=== PATIENT | male | born 1935 | race Caucasian/White ===

== ENCOUNTER 2023-03-04 12:11 | Observation (INO) | payer OTHER ==
--- OUTSIDE RECORDS SUMMARY | 2023-03-04 12:33 | XMS REPORT | Continuity of Care Document ---
:1935 Author Organization [facility] t Address [address] [place] [address] [place] [id number] Care Team Providers Name Role Phone TALIA SCHULZ Primary Care Physician Unavailable KLAUS BERGER Attending Clinician Unavailable Klaus Berger MD Attending Clinician KLAUS BERGER Admitting Clinician Unavailable Payers Payer Name Policy Type Policy Number Effective Date Expiration Date [facility] [id number] 2021 [facility] 00:00:00 PPO Problems This patient has no known problems. Allergies, Adverse Reactions, Alerts Allergy Allergy Status Severity Reaction(s) Onset Inactive Treating Comm ents Source Name Type Date Date Clinician NO KNOWN Drug Active [facility] ALLERGIE Class [facility] Social History Social Habit Start Date Stop Date Quantity Comments Source Sex Assigned At [birth year] [facility] 00:00:00 00:00:00 Medical Branch Smoking Status Start Date Stop Date Source Tobacco smoking consumption [facility] Branch Medications This patient has no known medications. Procedures Procedure Date / Time Performing Clinician Source Performed US [facility] 2022-03-05 14:13:00 Klaus Berger [facility] Medical Branch Encounters Start End Encounter Admission Attending Care Care Encounter Source Date/Time Date/Time Type Type Clinicians Facility Department ID 2022-03-05 2022-03-05 Outpatient R DANIEL [facility] [id number] Univers 08:30:02 23:59:00 KLAUS [facility] 2022-03-05 2022-03-05 [facility] [id number] [facility] 08:30:02 23:59:00 Encounter Klaus REYNAGA [id number] [facility]ipo [id number] [facility] [id number] [facility] 806 Branch Results This patient has no known results.
[2023-03-04 13:28] LABS: Absolute Lymphocytes (CBC) 1.2 K/uL (0.7-4.9); Hematocrit 26.6 % (39.6-49.0); Lymphocytes % 22.1 % (15.3-44.8); MCV 81.1 fL (80-100); MPV 8.2 fL (7.6-11.3); RBC Red Blood Cell Count 3.29 M/uL (4.33-5.43)
[2023-03-04 13:32] LABS: Protime INR 1.16
[2023-03-04] MEDS ORDERED: LOPERAMIDE HCL 2 MG CAPSULE PO PRN (14:00)
[2023-03-04] MEDS ORDERED: ONDANSETRON 4 MG/2 ML VIAL IV PRN (14:00)
[2023-03-04] MEDS ORDERED: ONDANSETRON 4 MG (ODT) TAB PO PRN (14:00)
[2023-03-04] MEDS ORDERED: ACETAMINOPHEN 325 MG TABLET PO PRN (14:00)
[2023-03-04] MEDS ORDERED: POLYETHYL GLY 3350 17 GM/DOSE PO PRN (14:00)
[2023-03-04] MEDS ORDERED: NACHLORIDE 0.45% 1,000 ML IV SCH (14:00)
[2023-03-04] MEDS ORDERED: DIPHENHYDRAMINE 25 MG TAB/CAP PO PRN (14:00)
--- NOTE | 2023-03-04 14:49 | RAD REPORT ---
EXAM DESCRIPTION: CTAbdomen Pelvis W Contrast - 03/04/2023 2:07 pm CLINICAL HISTORY: anemia COMPARISON: Abdomen Pelvis W Contrast dated 12/16/2017 TECHNIQUE: CT of the abdomen and pelvis was performed with IV contrast. All CT scans are performed using dose optimization technique as appropriate and may include automated exposure control or mA/KV adjustment according to patient size. FINDINGS: Lower chest: Small right greater than left pleural effusions. Atelectasis. Coronary artery calcifications and cardiomegaly . Sternotomy. Liver: No acute abnormality or suspicious lesions. Biliary: Cholelithiasis. Stomach: No significant focal abnormality. Duodenum: No significant focal abnormality. Pancreas: No significant abnormality. Spleen: No significant abnormality. Adrenal: No suspicious lesions. Kidney/ureter: No hydronephrosis. No renal calculi. Right renal scarring. Too small to characterize a nd/or benign appearing renal lesions are noted. Retroperitoneum: No retroperitoneal adenopathy. Vascular: Atherosclerosis which is severe. Bowel: No significant focal abnormality. Diverticulosis without diverticulitis. Peritoneum: No ascites or free air. Bladder: Circumferential bladder wall thickening. Reproductive: Mild prostatomegaly. Bones: No acute fracture. Other: Body wall edema. Rounded fluid collections in the subcutaneous tissues of the flank just to th e right of midline. One collection measures 5.7 cm. The other measures 4.4 cm. These were present in 2018 . IMPRESSION: 1. Anasarca including bilateral pleural effusions and a small volume of pleural free flu id. 2. Other incidental findings as noted above without specific findings to explain anemia.
[2023-03-04] MEDS ORDERED: NA CHLORIDE 0.9% 250 ML ONE (16:44)
[2023-03-04] MEDS ORDERED: TAMSULOSIN 0.4 MG SR CAP PO SCH (21:00)
[2023-03-04] MEDS ORDERED: FINASTERIDE 5 MG TAB PO SCH (21:00)
[2023-03-04] MEDS ORDERED: METOPROLOL TAR 50 MG TAB PO SCH (21:00)
[2023-03-04 21:15] LABS: Hematocrit 25.9 % (39.6-49.0)
[2023-03-04 23:06] VITALS: O2SAT 100
[2023-03-05] MEDS ORDERED: NA CHLORIDE 0.9% 250 ML ONE (03:30)
[2023-03-05 04:30] VITALS: TEMP 97.2
[2023-03-05 05:28] LABS: Albumin 2.5 g/dL (3.4-5.0); Bilirubin Direct 0.3 mg/dL (0-0.2); Bilirubin Indirect, Calculated 0.5 mg/dL (0.2-0.8); Bilirubin Total 0.8 mg/dL (0.2-1.0)
[2023-03-05 05:45] VITALS: BMI 25.7
[2023-03-05] MEDS ORDERED: LEVOTHYROXINE SOD 0.025 MG TAB PO SCH (06:30)
[2023-03-05 08:49] LABS: Hematocrit 29.6 % (39.6-49.0)
[2023-03-05] MEDS ORDERED: HOME MED 1 EA UNK (Fluticasone/Umeclidin/Vilanter [Trelegy Ellipta 100-62.5-25] Blst.W.Dev IH SCH (09:00)
[2023-03-05] MEDS ORDERED: ATORVASTATIN 40 MG TAB PO SCH (09:00)
[2023-03-05] MEDS ORDERED: HOME MED 1 EA UNK (Levothyroxine Sodium [Levothyroxine Sodium] 25 MCG Capsule) PO SCH (09:00)
[2023-03-05 11:01] VITALS: BP 146/89
--- NOTE | 2023-03-05 21:40 | P.DS ---
Admission Date: 03/04/23 Discharge Date: 03/05/23 Disposition: ROUTINE DISCHARGE Hospital Course: RICARDA HAD HG OF 7.6 DROPPED FROM 8.9 WITH [facility]. HE IS A CARDIAC PATIENT AND WAS FATIGUED WITH DYSPNEA. I DECIDED TO ADMIT FOR TRANSFUSION. AFTER ONE UNIT HG AT [facility] DROPPED FROM 8.1 TO 7.9. HE IS NOT ACUTELY BLEEDING. HE WAS GIVEN ONE MORE UNIT OF PACKED RBC AND DISCHARGED. I TALKED TO DR. BOOKER AND HE WILL DO FURTHER EVAL FOR THIS IRON DEF ANEMIA. PATIENT KNOWS TO CALL HIM. Vital Signs/Physical Exam: Temp Pulse Resp BP Pulse Ox 97.2 F 91 H 23 H 146/89 H 100 03/05/23 08:00 03/05/23 10:50 03/05/23 10:50 03/05/23 10:50 03/05/23 04:00 Laboratory Data at Discharge: WBC 5.30 thou/uL (4.3-10.9) 03/04/23 13:10 Hgb 9.2 g/dL (13.6-17.9) L D 03/05/23 08:17 Hct 29.6 % (39.6-49.0) L 03/05/23 08:17 Plt Count 155 thou/uL (152-406) 03/04/23 13:10 PT 12.8 SECONDS (9.5-12.5) H 03/04/23 13:10 INR 1.16 03/04/23 13:10 APTT 31.3 SECONDS (24.3-36.9) 03/04/23 13:10 Sodium 139 mEq/L (136-145) 03/04/23 13:10 Potassium 4.0 mEq/L (3.5-5.1) 03/04/23 13:10 BUN 26 mg/dL (7-18) H 03/04/23 13:10 Creatinine 1.61 mg/dL (0.70-1.30) H 03/04/23 13:10 Glucose 97 mg/dL (74-106) 03/04/23 13:10 Total Bilirubin 0.8 mg/dL (0.2-1.0) 03/05/23 04:25 AST 12 U/L (15-37) L 03/05/23 04:25 ALT 17 U/L (16-61) 03/05/23 04:25 Alkaline Phosphatase 74 U/L (45-117) 03/05/23 04:25 Home Medications: Atorvastatin Calcium 40 mg PO DAILY 03/04/23 Finasteride 5 mg PO BEDTIME 03/04/23 Fluticasone/Umeclidin/Vilanter [Trelegy Ellipta 100-62.5-25] 1 puff IH DAILY 03/04/23 Levothyroxine Sodium [Levothyroxine] 25 mcg PO DAILY 03/04/23 Metoprolol Tartrate [Lopressor] 50 mg PO BEDTIME 03/04/23 Tamsulosin [Flomax] 0.4 mg PO BEDTIME 03/04/23 Followup: David Austin MD [Family Provider] - Nishant Booker MD [ASSOCIATE-ACTIVE - CAN ADMIT] -
== END 2023-03-05 10:45 | disposition home or self-care (01) ==
LOC: 3RD-ICU 12:28
PROVIDERS: ADMIT Internal Medicine; ATTEND Internal Medicine
DX: D64.9 Anemia, unspecified (principal); D50.9 Iron deficiency anemia, unspecified; I25.10 Atherosclerotic heart disease of native coronary artery without angina pectoris
CPT/HCPCS: 36430 ×2; 85025; 80048; 36415; 86900; 86850; 85610; 86901; 80076; 85730; 86920 ×2; 85018 ×2; 85014 ×2; 74177; Q9967; P9016 ×2; J7050 ×2

== ENCOUNTER 2023-03-13 06:36 | Day surgery (SDC) | payer OTHER ==
[2023-03-13] MEDS ORDERED: Ringers Lactate 1,000 ML IV ONE (07:32)
[2023-03-13] MEDS ORDERED: propofoL 200 MG/20 ML VIAL IV ONE (09:13)
[2023-03-13] MEDS ORDERED: LIDOCAINE 1% MPF 5 ML VIAL ONE (09:13)
[2023-03-13] MEDS ORDERED: GLUCAGON 1 MG/VIAL ONE (10:27)
[2023-03-13 12:21] VITALS: BP 125/72; TEMP 97; O2SAT 97
== END 2023-03-13 11:10 | disposition home or self-care (01) ==
LOC: OR 06:36
PROVIDERS: ATTEND Internal Medicine Gastroenterology
PROC: 0DBM8ZX Excision of Descending Colon, Via Natural or Artificial Opening Endoscopic, Diagnostic (ICD-10-PCS; 2023-03-13)
PROC: 0DBC8ZX Excision of Ileocecal Valve, Via Natural or Artificial Opening Endoscopic, Diagnostic (ICD-10-PCS; 2023-03-13)
PROC: 0DB98ZX Excision of Duodenum, Via Natural or Artificial Opening Endoscopic, Diagnostic (ICD-10-PCS; principal; 2023-03-13 10:15)
PROC: 0DB68ZX Excision of Stomach, Via Natural or Artificial Opening Endoscopic, Diagnostic (ICD-10-PCS; 2023-03-13 10:15)
DX: D50.9 Iron deficiency anemia, unspecified (principal); R19.7 Diarrhea, unspecified; K26.7 Chronic duodenal ulcer without hemorrhage or perforation; Z86.010 Personal history of colon polyps; K57.30 Diverticulosis of large intestine without perforation or abscess without bleeding; K64.8 Other hemorrhoids; K29.80 Duodenitis without bleeding; K29.50 Unspecified chronic gastritis without bleeding; D12.0 Benign neoplasm of cecum; K26.3 Acute duodenal ulcer without hemorrhage or perforation
CPT/HCPCS: 88312; 88305; 43239; 45385; J1610; J2704; J2001; J7120

== ENCOUNTER 2023-05-15 14:58 | Inpatient (IN) | payer OTHER ==
--- OUTSIDE RECORDS SUMMARY | 2023-05-15 15:38 | XMS REPORT | Continuity of Care Document ---
:1935 Author Organization [facility] t Address [address] [place] [address] [place] [address] Care Team Providers Name Role Phone TALIA SCHULZ Primary Care Physician Unavailable KLAUS BERGER Attending Clinician Unavailable Klaus Berger MD Attending Clinician KLAUS BERGER Admitting Clinician Unavailable Payers Payer Name Policy Type Policy Number Effective Date Expiration Date [facility] [id number] 2021 [facility] 00:00:00 PPO Problems This patient has no known problems. Allergies, Adverse Reactions, Alerts Allergy Allergy Status Severity Reaction(s) Onset Inactive Treating Comm ents Source Name Type Date Date Clinician NO KNOWN Drug Active Univers ALLERGIE Class [facility] Social History Social Habit Start Date Stop Date Quantity Comments Source Sex Assigned At [birth year] [facility] 00:00:00 00:00:00 Medical Branch Smoking Status Start Date Stop Date Source Tobacco smoking consumption [facility] Branch Medications This patient has no known medications. Procedures Procedure Date / Time Performing Clinician Source Performed US [facility] 2022-03-05 14:13:00 Klaus Berger [facility] Medical Branch Encounters Start End Encounter Admission Attending Care Care Encounter Source Date/Time Date/Time Type Type Clinicians Facility Department ID 2022-03-05 2022-03-05 Outpatient R DANIEL [facility] [id number] Univers 08:30:02 23:59:00 KLAUS [facility] 2022-03-05 2022-03-05 [facility] [id number] [facility] 08:30:02 23:59:00 Encounter Klaus REYNAGA [id number] itPipo [id number] [facility] [id number] [facility] 806 Branch Results This patient has no known results.
[2023-05-15] MEDS ORDERED: LOPERAMIDE HCL 2 MG CAPSULE PO PRN (15:52)
[2023-05-15] MEDS ORDERED: POLYETHYL GLY 3350 17 GM/DOSE PO PRN (15:52)
[2023-05-15] MEDS ORDERED: ONDANSETRON 4 MG/2 ML VIAL IV PRN (15:52)
--- NOTE | 2023-05-15 16:37 | RAD REPORT ---
EXAM DESCRIPTION: CT - Abdomen Pelvis Wo Contrast - 05/15/2023 4:27 pm CLINICAL HISTORY: Abdominal pain. CHF, Anasarca, Anemia COMPARISON: Abdomen Pelvis W Contrast dated 03/04/2023 TECHNIQUE: CT imaging of the abdomen and pelvis was performed without contrast. Solid organ, bowel a nd vascular assessment is limited due to lack of IV and oral contrast. All CT scans are performed using dose optimization technique as appropriate and may include automated exposure control or mA/KV adjustment according to patient size. FINDINGS: Small left and small to moderate right pleural effusion with atelectasis in the right lung base. Cholelithiasis. Noncontrast assessment of the liver, spleen, pancreas and adrenal glands is normal. N o stone or hydronephrosis of either kidney. No solid renal mass. Prominent anasarca pattern remains present. No bowel obstruction or free air. Moderate sigmoid divert iculosis coli without diverticulitis The appendix is normal. Aortoiliac atherosclerosis is present. Moderate multilevel lumbar degenerative changes. IMPRESSION: Sigmoid diverticulosis coli seen without diverticulitis. Moderate generalized anasarca. A limited non-contrast examination was performed as detailed.
--- NOTE | 2023-05-15 16:47 | RAD REPORT ---
EXAM DESCRIPTION: RAD - Chest Pa And Lat (2 Views) - 05/15/2023 4:40 pm CLINICAL HISTORY: dyspnea, chf Chest pain. COMPARISON: <Comparisons> FINDINGS: Small left and moderate right pleural effusion is seen with probable atelectasis in the ri ght lung base. The lungs appear hyperinflated compatible with underlying emphysema. The heart is mode rately enlarged in size.
[2023-05-15] MEDS: FUROSEMIDE 40 MG/4 ML VIAL IV SCH (17:13)
[2023-05-15 17:43] LABS: Absolute Lymphocytes (CBC) 0.9 K/uL (0.7-4.9); Hematocrit 28.8 % (39.6-49.0); MPV 8.6 fL (7.6-11.3); Platelets 127 thou/uL (152-406); RBC Red Blood Cell Count 3.69 M/uL (4.33-5.43)
[2023-05-15 17:45] LABS: Protime INR 1.19
[2023-05-15] MEDS: ENOXAPARIN 30 MG/0.3 ML SQ SCH (18:35)
[2023-05-15 18:37] LABS: Albumin 2.7 g/dL (3.4-5.0); Bilirubin Direct 0.3 mg/dL (0-0.2); Bilirubin Indirect, Calculated 0.3 mg/dL (0.2-0.8); Bilirubin Total 0.6 mg/dL (0.2-1.0); Magnesium 1.8 mg/dL (1.6-2.4); Phosphorus 3.7 mg/dL (2.5-4.9); Potassium 3.7 mEq/L (3.5-5.1); Protein, Total 6.4 g/dL (6.4-8.2)
[2023-05-15 18:45] LABS: Thyroid Stimulating Hormone 5.1 uIU/mL (0.358-3.740)
[2023-05-16 06:33] LABS: Absolute Lymphocytes (CBC) 0.8 K/uL (0.7-4.9); Hematocrit 26.5 % (39.6-49.0); Lymphocytes % 16.3 % (15.3-44.8); MCV 77.1 fL (80-100); MPV 8.5 fL (7.6-11.3); Platelets 119 thou/uL (152-406); RBC Red Blood Cell Count 3.44 M/uL (4.33-5.43)
[2023-05-16 06:41] LABS: Potassium 3.6 mEq/L (3.5-5.1)
[2023-05-16] MEDS ORDERED: POTASSIUM CL SA 10 MEQ TAB PO ONE (07:26)
[2023-05-16] MEDS: ASPIRIN EC 81 MG TAB PO SCH (08:44)
[2023-05-16] MEDS: FUROSEMIDE 40 MG/4 ML VIAL IV SCH ×2 (08:44→17:12)
[2023-05-16] MEDS: LEVOTHYROXINE SOD 0.025 MG TAB PO SCH (08:44)
[2023-05-16] MEDS: SPIRONOLACTONE 100 MG TAB PO SCH (08:44)
[2023-05-16] MEDS ORDERED: HOME MED 1 EA UNK (Levothyroxine Sodium [Levothyroxine Sodium] 25 MCG Capsule) PO SCH (09:00)
[2023-05-16 11:10] LABS: Specific Gravity 1.009 (1.005-1.030); Urine Bacteria <20 /HPF (<20); Urine Bilirubin NEGATIVE (Negative); Urine Blood Negative (Negative); Urine Clarity Turbid (Clear); Urine Color Light-Yellow (Yellow); Urine Glucose NEGATIVE (Negative); Urine Mucus Slight /HPF (None Seen); Urine Protein 1+ (Negative); Urine RBC <5 /HPF (None Seen); Urine Urobilinogen Normal (Normal)
[2023-05-16 11:21] LABS: UR PROTEIN 77.1 mg/dL (<11.9); Urine Protein/Creatinine Ratio 2.27 ratio (<0.15)
--- NOTE | 2023-05-16 12:42 | ECHO ---
HEIGHT: 6 ft 1 in WEIGHT: 240 lb 0 oz DATE OF STUDY: 05/16/[address]: David Austin MD 2-DIMENSIONAL: YES M.MODE: YES DOPPLER: YES COLOR FLOW: YES TDS: YES PORTABLE: YES DEFINITY: BUBBLE STUDY: DIAGNOSIS: CONGESTIVE HEART FAILURE CARDIAC HISTORY: CATHERIZATION: YES SURGERY: YES PROSTHETIC VALVE: NO PACEMAKER: NO MEASUREMENTS (cm) DIASTOLIC (NORMALS) SYSTOLIC (NORMALS) IVSd 1.2 (0.6-1.2) LA Diam 3.2 (1.9-4.0) LVEF 59% LVIDd 5.0 (3.5-5.7) LVIDs 3.4 (2.0-3.5) %FS 31% LVPWd 1.3 (0.6-1.2) Ao Diam 3.2 (2.0-3.7) 2 DIMENSIONAL ASSESSMENT: RIGHT ATRIUM: NORMAL LEFT ATRIUM: NORMAL RIGHT VENTRICLE: NORMAL LEFT VENTRICLE: LEFT VENTRICULAR HYPERTROPHY TRICUSPID VALVE: MODERATE TRICUSPID REGURGITATION MITRAL VALVE: MILD MITRAL REGURGITATION PULMONIC VALVE: MILD PULMONIC INSUFFICIENCY AORTIC VALVE: MILD AORTIC STENOSIS PERICARDIAL EFFUSION: NONE AORTIC ROOT: NORMAL LEFT VENTRICULAR WALL MOTION: NORMAL DOPPLER/COLOR FLOW: SEE BELOW COMMENTS: 1. NORMAL LEFT VENTRICULAR EJECTION FRACTION 55-60% 2. MODERATE DIASTOLIC DYSFUNCTION 3. MILD CONCENTRIC LEFT VENTRICULAR HYPERTROPHY 4. MILD MITRAL REGURGITATION, AORTIC INSUFFICIENCY, PULMONIC INSUFFICIENCY 5. MODERATE TRICUSPID REGURGITATION 6. PULMONARY HYPERTENSION WITH RIGHT VENTRICULAR SYSTOLIC PRESSURE OF 47 mmHg PLUS RIGHT ATRIAL PRESSURE TECHNOLOGIST: NEREIDA DYER
--- NOTE | 2023-05-16 13:14 | P.PN ---
Subjective Date of Service: 05/16/23 Chief Complaint: SHORT OF BREATH, SWELLING Subjective: Improving NITZA HAS IMPROVED SOME WITH DYSPNEA. YESTERDAY HE WAS DYSPNEIC, ORTHOPNEIC AND VERY WEAK. HE HAS REFUSED TO TAKE ANTICOAGULATION FOR A FIB LONG I KNOW HIM. HE HAS NO CHEST PAIN. FOLLOWING IS HIS HISTORY. 2017 Vitamin B12 deficiency [E53.8] 2018 Benign prostatic hypertrophy [N40.0] 2014 Atrial fibrillation and flutter [I48.91, I48.92 0.3 0.3] REFUSES ANTICOAGULATION. REFUSES ANTICOAGULATION. 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 MAY BE AGER RELATED. FU LAB. MAY BE AGER RELATED. 2022 Anemia [D64.9] 2022 COPD (chronic obstructive pulmonary disease) [J44.9 0.3] Review of Systems 10-point ROS is otherwise unremarkable General: Weakness, Malaise Respiratory: Shortness of Breath Physical Examination - Vital Signs Temperature: 98.1 F Blood Pressure: 139/77 Pulse: 78 Respirations: 16 Pulse Ox (%): 96 - Physical Exam General: Oriented x3, Cooperative, Moderate distress HEENT: Atraumatic, PERRLA, EOMI Neck: Supple, JVD distended Respiratory: Clear to auscultation bilaterally, Normal air movement Cardiovascular: Regular rate/rhythm, Normal S1 S2, Edema (DIFFUSE ANASARCA.) Gastrointestinal: Normal bowel sounds, No tenderness Musculoskeletal: No tenderness Integumentary: No rashes Neurological: Normal speech, Normal tone, Normal affect Lymphatics: No axilla or inguinal lymphadenopathy - Studies Laboratory Data (last 24 hrs) 05/16/23 05/16/23 05/15/23 06:17 06:17 17:30 WBC 4.70 Hgb 8.4 L Hct 26.5 L Plt Count 119 L PT INR APTT Sodium 141 142 Potassium 3.6 3.7 BUN 31 H 31 H Creatinine 1.79 H 1.81 H Glucose 112 H 131 H Phosphorus 3.7 Magnesium 1.8 Total Bilirubin 0.6 AST 18 ALT 18 Alkaline Phosphatase 77 10/11/23 10/11/23 17:30 17:30 WBC 5.40 Hgb 9.0 L Hct 28.8 L Plt Count 127 L PT 13.1 H INR 1.19 APTT 30.7 Sodium Potassium BUN Creatinine Glucose Phosphorus Magnesium Total Bilirubin AST ALT Alkaline Phosphatase Medications List Reviewed: Yes Assessment And Plan - Current Problems (Diagnosis) (1) Diastolic dysfunction with acute on chronic heart failure Current Visit: Yes Status: Acute Plan: LASIX IV ORAL SPIRONOLACTONE LATER ADD ENTRESTO B RYAN. STABLE CONSULT CARDIOLOGY. (2) History of atrial fibrillation Current Visit: Yes Status: Chronic Plan: REFUSES TO TAKE AC MAY NEED WATCHMAN. ORDER VQ SCAN (3) HTN (hypertension) Current Visit: Yes Status: Chronic (4) CKD (chronic kidney disease) stage 3, GFR 30-59 ml/min Current Visit: Yes Status: Chronic Plan: CONSULT DR. ZENG NOT NEPHROTIC (5) Proteinuria Current Visit: Yes Status: Acute (6) Secondary thrombocytopenia Current Visit: Yes Status: Acute
[2023-05-16] MEDS: SOD FERRIC GLUC COMPLX/SUCROSE 250 MG in NA CHLORIDE 0.9% 250 ML IV SCH (14:57)
[2023-05-16] MEDS: ENOXAPARIN 30 MG/0.3 ML SQ SCH (17:12)
--- NOTE | 2023-05-16 18:43 | CON ---
Date of Consultation: 05/16/2023 Reason For Consultation: Elevated BUN and creatinine, fluid management, anasarca. History Of Present Illness: This is an year-old gentleman with significant past medical h istory of hypertension, hyperlipidemia, B12 deficiency, hypothyroidism, benign prostate hypertrophy, atrial fibrillation, CAD with status post CABG in 2010, chronic kidney disease. This year, creatinin e is 1.7, BUN 31, and GFR 38. The patient apparently came to the hospital after he started having an emia. Patient was started on oral iron, developed some constipation. For that reason, he stopped. The patient started having the swelling on the lower extremity and gradually started having shortness of breath. For that reason reported to the hospital. The patient denied taking any nonsteroidal. Denied being on any diuretic. The patient denied any history of congestive heart failure. Past Medical History: Includes: 1.Hypothyroidism. 2.B12 deficiency. 3.Hyperlipidemia. 4.Hypertension. 5.CAD, status post CABG in 2010. 6.Chronic kidney disease stage 3B, baseline creatinine 1.7, GFR of 38 secondary to cardiorenal, hype rtension, nephrosclerosis. 7.Iron deficiency anemia. 8.Vitamin D deficiency. Allergies: TO AMBIEN. Social History: Denied smoking. Denied drinking. Denied drug abuse. Family History: Positive for cancer. Surgical History: Include CABG. Review of Systems: Head and Neck: No red eye. No ear pain. GI: No nausea, no vomiting. Has constipation. : No polyuria, no dysuria, no hematuria. MANAGER STORE: Not applicable. Respiratory: Has shortness of breath. Cardiovascular: Has orthopnea. Has leg swelling. Endocrine: No polydipsia. Skin: No rash. Physical Examination: Vital Signs: When I saw the patient; blood pressure 139/77, pulse of 78, afebrile. Chest: Crackles bilateral. Heart: S1, S2. Systolic murmur. Regular. Abdomen: Soft, nontender. No organomegaly. Could not appreciate any bruit over the renal artery. Extremities: +1 edema. Neurologic: Alert, oriented x3. No focal. Laboratory Data: On May 08, hemoglobin 9.4, sodium 140, potassium 4, creatinine 1.7. GFR of 39. Today's lab data; sodium 141, potassium 3.6, bicarb 27, BUN 31, creatinine 1.7, GFR of 36, calcium 8 .4, hemoglobin 8.4, WBC 4.7. Urinalysis negative for infection. PC ratio 2.2. Reviewing the record , patient had been nephrotic before at 3 g. PTH 156, TSH 5. CT abdomen and pelvis; diverticulosis, anasarca. No hydronephrosis in either kidney. Current Medications: The patient on include atorvastatin, Flomax, diphenhydramine, aspirin, spironol actone 100 mg, metoprolol, atorvastatin, Lasix 40 b.i.d., Pepcid, Zofran, loperamide, levothyroxine, finasteride. Assessment And Plan: 1.Chronic kidney disease stage 3B secondary to cardiorenal, hypertension, nephrosclerosis with nephr otic range proteinuria over volume. I agree with current diuresis dose. We will monitor the patient . Obstructive uropathy has been ruled out with the presence of anemia. I am going to go ahead and s end for serum protein electrophoresis and we will follow up as the patient is nephrotic without any h istory of diabetes or other reason. 2.Nephrotic range proteinuria with anemia. We will send for full workup and we will follow up. 3.Anemia of chronic kidney disease as above. 4.Iron-deficiency anemia. Start the patient on IV iron. 5.Anasarca secondary to nephrotic range proteinuria. I agree with diuresis. We will consider ARB d own in the row after stabilization of the fluid status for the patient. 6.Hypothyroidism has been ruled out. 7.Coronary artery disease with congestive heart failure with exacerbation, over volume as above. We will follow up with Cardiology. Thank you, Dr. Austin for allowing us to participate in the care of your patient. GREGORIA Voice ID: [id number] Report ID: [id number]
[2023-05-16] MEDS: TAMSULOSIN 0.4 MG SR CAP PO SCH (20:35)
[2023-05-16] MEDS: ATORVASTATIN 40 MG TAB PO SCH (20:36)
[2023-05-16] MEDS: FINASTERIDE 5 MG TAB PO SCH (20:36)
[2023-05-16] MEDS: METOPROLOL TAR 50 MG TAB PO SCH (20:36)
[2023-05-16] MEDS: FAMOTIDINE 20 MG TAB PO SCH (20:36)
[2023-05-17] MEDS: LEVOTHYROXINE SOD 0.025 MG TAB PO SCH (06:04)
[2023-05-17 06:16] LABS: Lymphocytes % 16.8 % (15.3-44.8); MCV 76.7 fL (80-100); MPV 8.8 fL (7.6-11.3); Platelets 129 thou/uL (152-406); RBC Red Blood Cell Count 3.53 M/uL (4.33-5.43)
[2023-05-17 06:27] LABS: Albumin 2.5 g/dL (3.4-5.0); Phosphorus 3.2 mg/dL (2.5-4.9); Uric Acid 8.5 mg/dL (3.5-7.2)
[2023-05-17 07:31] LABS: Rheumatoid Factor NEG (NEG)
--- NOTE | 2023-05-17 07:44 | RAD REPORT ---
EXAM DESCRIPTION: RAD - Chest Single View - 05/17/2023 7:20 am CLINICAL HISTORY: Post VQ scan COMPARISON: Chest Pa And Lat (2 Views) dated 05/15/2023; Chest Pa And Lat (2 Views) dated 02/20/2023; CHEST SINGLE VIEW dated 03/20/2012; CHEST PA AND LAT 2 VIEW dated 03/20/2010; Abdomen Pelvis Wo Cont rast dated 05/15/2023 FINDINGS: Lines: None. Lungs: Probable atelectasis as a result of the right-sided effusion. Pleural: Moderate right effusion. Small left effusion. Cardiac: Cardiomegaly. Mediastinum: Within normal limits. Bones: No acute fractures. Sternotomy. Other: None IMPRESSION: Bilateral effusions with underlying atelectasis could be secondary to either edema and/o r fluid overload.
--- NOTE | 2023-05-17 07:52 | RAD REPORT ---
EXAM DESCRIPTION: NM - Vent Perfusion VQ Scan - 05/17/2023 7:20 am CLINICAL HISTORY: Dyspnea COMPARISON: Same-day chest radiograph TECHNIQUE: The patient was administered 22.5 Xenon 133 gas with posterior projection inspiration, eq uilibrium, and washout views obtained. The patient was then administered 6.9 Tc-99m SC labeled RBCs f ollowed by standard 8 view protocol. FINDINGS: Single segmental size V/Q mismatch in the left upper lobe with perfusion defect. Triple match defect in the right lung likely combination of pleural fluid and atelectasis when correl ating with the same-day chest radiograph. IMPRESSION: Low probability for pulmonary embolus.
[2023-05-17] MEDS: ASPIRIN EC 81 MG TAB PO SCH (08:35)
[2023-05-17] MEDS: SPIRONOLACTONE 100 MG TAB PO SCH (08:36)
[2023-05-17] MEDS: FUROSEMIDE 40 MG/4 ML VIAL IV SCH ×2 (08:36→17:27)
--- NOTE | 2023-05-17 09:52 | RAD REPORT ---
EXAM DESCRIPTION: US - Extrem Venous W Compress Dale - 05/17/2023 9:37 am CLINICAL HISTORY: EDEMA COMPARISON: No comparisons TECHNIQUE: Real-time sonographic evaluation of the lower extremity deep venous systems was performed using color Doppler, grayscale, and compression. FINDINGS: Bilateral lower extremities. Normal compressibility, flow augmentation, phasic flow and spontaneous flow is identified in both the left and right lower extremity deep venous systems. No intraluminal filling defects seen. IMPRESSION: No DVT in either lower extremity.
--- NOTE | 2023-05-17 15:12 | P.PN ---
Subjective Date of Service: 05/17/23 Chief Complaint: SHORT OF BREATH, SWELLING Subjective: No new changes Physical Examination - Vital Signs Temperature: 97.6 F Blood Pressure: 144/73 Pulse: 73 Respirations: 16 Pulse Ox (%): 98 - Physical Exam General: Other (chronically ill-appearing) HEENT: Atraumatic, Normocephalic Neck: Supple, JVD not distended Respiratory: Other (symmetric chest expansion) Cardiovascular: No rubs, No murmurs Gastrointestinal: Soft and benign, No rebound Musculoskeletal: No clubbing Integumentary: No warmth Neurological: Normal tone Urinary: Other (no bladder distention) External genitalia: Deferred Rectal: Deferred - Studies Laboratory Data (last 24 hrs) 05/17/23 05/17/23 05:50 05:50 WBC 5.90 Hgb 8.7 L Hct 27.0 L Plt Count 129 L Sodium 142 Potassium 4.0 BUN 31 H Creatinine 1.83 H Glucose 89 Uric Acid 8.5 H Phosphorus 3.2 Medications List Reviewed: Yes Assessment And Plan - Plan 1. Chronic kidney disease stage 3B secondary to cardiorenal, hypertension. SCr stable. Continue lasix. Crystal po fluid intake. 2. Nephrotic range proteinuria. Statin. Low Na diet. Lasix. 3. Iron-deficiency anemia. On IV iron. 4. BLE edema. Cont IV lasix. 5. Coronary artery disease s/p CABG, acute on chronic diastolic HF. Cont lasix & other cardioprudent meds.
--- NOTE | 2023-05-17 17:13 | P.PN ---
Subjective Date of Service: 05/17/23 Chief Complaint: SHORT OF BREATH, SWELLING Subjective: Improving NITZA HAS IMPROVED SOME WITH DYSPNEA. YESTERDAY HE WAS DYSPNEIC, ORTHOPNEIC AND VERY WEAK. HE HAS REFUSED TO TAKE ANTICOAGULATION FOR A FIB LONG I KNOW HIM. HE HAS NO CHEST PAIN. FOLLOWING IS HIS HISTORY. 2017 Vitamin B12 deficiency [E53.8] 2018 Benign prostatic hypertrophy [N40.0] 2014 Atrial fibrillation and flutter [I48.91, I48.92 0.3 0.3] REFUSES ANTICOAGULATION. REFUSES ANTICOAGULATION. 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 MAY BE AGER RELATED. FU LAB. MAY BE AGER RELATED. 2022 Anemia [D64.9] 2022 COPD (chronic obstructive pulmonary disease) [J44.9 0.3] HE IS WEAK, LOT BETTER DYSPNEA HAS IMPROVED. Review of Systems 10-point ROS is otherwise unremarkable General: Weakness Respiratory: Shortness of Breath Physical Examination - Vital Signs Temperature: 97.9 F Blood Pressure: 129/77 Pulse: 90 Respirations: 16 Pulse Ox (%): 94 - Physical Exam General: Oriented x3, Mild distress, Moderate distress HEENT: Atraumatic, PERRLA, EOMI Neck: Supple, JVD not distended Respiratory: Clear to auscultation bilaterally, Normal air movement Cardiovascular: Abnormal S1 S2 Gastrointestinal: Normal bowel sounds, No tenderness Musculoskeletal: No tenderness Integumentary: No rashes Neurological: Normal speech, Normal tone, Normal affect Lymphatics: No axilla or inguinal lymphadenopathy - Studies Laboratory Data (last 24 hrs) 05/17/23 05/17/23 05:50 05:50 WBC 5.90 Hgb 8.7 L Hct 27.0 L Plt Count 129 L Sodium 142 Potassium 4.0 BUN 31 H Creatinine 1.83 H Glucose 89 Uric Acid 8.5 H Phosphorus 3.2 Medications List Reviewed: Yes Assessment And Plan - Current Problems (Diagnosis) (1) Diastolic dysfunction with acute on chronic heart failure Current Visit: Yes Status: Acute Plan: LASIX IV ORAL SPIRONOLACTONE LATER ADD ENTRESTO B RYAN. STABLE CONSULT CARDIOLOGY. HIS EDEMA WILL BE CHRONIC WITH CHF HE ALSO HAS PROTEINURIA. LOW ALBUMIN IS NOT CORRECTABLE. PATIENT AND FAMILY UNDERSTAND. (2) History of atrial fibrillation Current Visit: Yes Status: Chronic Plan: REFUSES TO TAKE AC MAY NEED WATCHMAN. ORDER VQ SCAN (3) HTN (hypertension) Current Visit: Yes Status: Chronic (4) CKD (chronic kidney disease) stage 3, GFR 30-59 ml/min Current Visit: Yes Status: Chronic Plan: CONSULT DR. ZENG NOT NEPHROTIC (5) Proteinuria Current Visit: Yes Status: Acute (6) Secondary thrombocytopenia Current Visit: Yes Status: Acute
[2023-05-17] MEDS: ENOXAPARIN 40 MG/0.4 ML SQ SCH (17:28)
[2023-05-17] MEDS: TAMSULOSIN 0.4 MG SR CAP PO SCH (19:35)
[2023-05-17] MEDS: FINASTERIDE 5 MG TAB PO SCH (19:36)
[2023-05-17] MEDS: ATORVASTATIN 40 MG TAB PO SCH (19:36)
[2023-05-17] MEDS: FAMOTIDINE 20 MG TAB PO SCH (19:36)
[2023-05-17] MEDS: METOPROLOL TAR 50 MG TAB PO SCH (19:36)
--- NOTE | 2023-05-17 20:02 | CON ---
Date of Consultation: 05/17/2023 Reason For Consultation: Heart failure, anasarca. History Of Present Illness: This is an 88-year-old male, history of dyslipidemia, hypertension, jose carlos nary artery disease status post CABG, chronic kidney disease, presented with generalized swelling, lo wer extremity along with shortness of breath and orthopnea. Denies having any other complaints. No chest pain. Past Medical History: As outlined above in the HPI. Medication: Refer reconciliation sheet for detailed list. Allergies: HE IS ALLERGIC TO AMBIEN. Family History: No mature coronary artery disease or cancer. Social History: Does not smoke or drink. Does not use any drugs. Review of Systems: All systems reviewed. They are negative except mentioned in HPI. Physical Examination: Vital Signs: Reviewed. Head and Neck: Pupils are equal, reactive to light. Intact eye movements. No cervical lymphadenopa thy. Neck: Supple. Thyroid is not enlarged. Has JVD. Lungs: Decreased breathing sounds with wheezing and crackles. No accessory muscle use or muscle ret raction. HEART: Irregularly irregular. No extra sounds. Abdomen: Soft, nontender. Bowel sounds positive. No organomegaly. No masses or hernia. No rigidi ty or rebound. Extremities: No clubbing, cyanosis. Positive edema. Neurologic: Alert, awake, oriented x3. No acute focal deficits appreciated. Investigations: BUN 31, creatinine 1.83. Assessment/recommendations: 1.Acute on chronic diastolic heart failure exacerbation. Agree with diuresis and recommend to consu lt Nephrology for the chronic kidney disease. 2.Atrial fibrillation, rate is controlled on aspirin. Cannot tolerate anticoagulant. He might be a candidate for a left atrial appendage closure. 3.Dyslipidemia. Continue statin. Thank you for the consult. /TIFFANY Voice ID: [id number] Report ID: [id number]
[2023-05-17] MEDS: ACETAMINOPHEN 325 MG TABLET PO PRN (23:05)
[2023-05-17] MEDS: DIPHENHYDRAMINE 25 MG TAB/CAP PO PRN (23:05)
[2023-05-18] MEDS: LEVOTHYROXINE SOD 0.025 MG TAB PO SCH (05:22)
[2023-05-18 06:39] LABS: Absolute Lymphocytes (CBC) 1.1 K/uL (0.7-4.9); Hematocrit 28.3 % (39.6-49.0); Lymphocytes % 18.3 % (15.3-44.8); MCV 76.8 fL (80-100); MPV 8.8 fL (7.6-11.3); Platelets 138 thou/uL (152-406); RBC Red Blood Cell Count 3.68 M/uL (4.33-5.43)
[2023-05-18 06:49] LABS: Albumin 2.7 g/dL (3.4-5.0); Phosphorus 3.5 mg/dL (2.5-4.9)
[2023-05-18] MEDS: ASPIRIN EC 81 MG TAB PO SCH (08:30)
[2023-05-18] MEDS: SPIRONOLACTONE 100 MG TAB PO SCH (08:30)
[2023-05-18] MEDS: FUROSEMIDE 40 MG/4 ML VIAL IV SCH (08:31)
[2023-05-18] MEDS: ACETAMINOPHEN 325 MG TABLET PO PRN ×2 (09:18→16:42)
--- NOTE | 2023-05-18 09:43 | P.PN ---
Subjective Date of Service: 05/18/23 Chief Complaint: SHORT OF BREATH, SWELLING Subjective: Improving NITZA HAS IMPROVED SOME WITH DYSPNEA. YESTERDAY HE WAS DYSPNEIC, ORTHOPNEIC AND VERY WEAK. HE HAS REFUSED TO TAKE ANTICOAGULATION FOR A FIB LONG I KNOW HIM. HE HAS NO CHEST PAIN. FOLLOWING IS HIS HISTORY. 2017 Vitamin B12 deficiency [E53.8] 2018 Benign prostatic hypertrophy [N40.0] 2014 Atrial fibrillation and flutter [I48.91, I48.92 0.3 0.3] REFUSES ANTICOAGULATION. REFUSES ANTICOAGULATION. 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 MAY BE AGER RELATED. FU LAB. MAY BE AGER RELATED. 2022 Anemia [D64.9] 2022 COPD (chronic obstructive pulmonary disease) [J44.9 0.3] HE IS WEAK, LOT BETTER DYSPNEA HAS IMPROVED. He is lot better Walks better now. May go home on Saturday. Physical Examination - Vital Signs Temperature: 98.0 F Blood Pressure: 124/84 Pulse: 59 Respirations: 16 Pulse Ox (%): 93 - Physical Exam General: Mild distress HEENT: Atraumatic, PERRLA, EOMI Neck: Supple, JVD not distended Respiratory: Clear to auscultation bilaterally, Normal air movement Cardiovascular: Regular rate/rhythm, Normal S1 S2, Edema (lot lesser), Abnormal S1 S2 Gastrointestinal: Normal bowel sounds, No tenderness Musculoskeletal: No tenderness Integumentary: No rashes Neurological: Normal speech, Normal tone, Normal affect Lymphatics: No axilla or inguinal lymphadenopathy - Studies Laboratory Data (last 24 hrs) 05/18/23 05/18/23 06:13 06:13 WBC 5.90 Hgb 9.0 L Hct 28.3 L Plt Count 138 L Sodium 139 Potassium 4.0 BUN 33 H Creatinine 1.97 H Glucose 86 Phosphorus 3.5 Medications List Reviewed: Yes Assessment And Plan - Current Problems (Diagnosis) (1) Diastolic dysfunction with acute on chronic heart failure Current Visit: Yes Status: Acute Plan: LASIX IV ORAL SPIRONOLACTONE LATER ADD ENTRESTO B RYAN. STABLE CONSULT CARDIOLOGY. HIS EDEMA WILL BE CHRONIC WITH CHF HE ALSO HAS PROTEINURIA. LOW ALBUMIN IS NOT CORRECTABLE. PATIENT AND FAMILY UNDERSTAND. REDUCE DOSE OF LASIX SOMEWHAT PRERENAL NOW. (2) History of atrial fibrillation Current Visit: Yes Status: Chronic Plan: REFUSES TO TAKE AC MAY NEED WATCHMAN. ORDER VQ SCAN (3) HTN (hypertension) Current Visit: Yes Status: Chronic (4) CKD (chronic kidney disease) stage 3, GFR 30-59 ml/min Current Visit: Yes Status: Chronic Plan: CONSULT DR. ZENG NOT NEPHROTIC (5) Proteinuria Current Visit: Yes Status: Acute (6) Secondary thrombocytopenia Current Visit: Yes Status: Acute
--- NOTE | 2023-05-18 13:54 | P.PN ---
Subjective Date of Service: 05/18/23 Chief Complaint: SHORT OF BREATH, SWELLING Subjective: Other (no urinary complaints.) Physical Examination - Vital Signs Temperature: 97.6 F Blood Pressure: 126/69 Pulse: 79 Respirations: 16 Pulse Ox (%): 93 - Physical Exam General: Other (chronically ill-appearing) HEENT: Atraumatic, Normocephalic Neck: Supple Respiratory: Other (symmetric chest expansion) Cardiovascular: No rubs, No murmurs Gastrointestinal: Soft and benign, No guarding Musculoskeletal: Swelling (BLEs) Integumentary: No warmth Neurological: Normal speech, Normal tone Urinary: Other (no bladder distention) External genitalia: Deferred Rectal: Deferred - Studies Laboratory Data (last 24 hrs) 05/18/23 05/18/23 06:13 06:13 WBC 5.90 Hgb 9.0 L Hct 28.3 L Plt Count 138 L Sodium 139 Potassium 4.0 BUN 33 H Creatinine 1.97 H Glucose 86 Phosphorus 3.5 Medications List Reviewed: Yes Assessment And Plan - Plan 1. RUPERT 2/2 CRS1, r/o obstructive uropathy. Hx of RUPERT secondary to obstructive uropathy + prerenal state, improved w/ po hydration & higher dose tamsulosin. SCr plateauing at 2.0. Monitor for urinary retention. Encourage liberal po fluid intake at least 2L/d. Cont lasix. 2. 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 Baseline SCr 1.3 (GFR 55 ml/min) as of 11/14/2022. Monitor renal panel. 3. BPH. Cont finasteride + flomax qhs. 4. Proteinuria. Statin. Low Na diet. Lasix. 5. Iron-deficiency anemia. On IV iron. 6. BLE edema. Cont IV lasix. 7. Coronary artery disease s/p CABG, acute on chronic diastolic HF. TTE on 05/16/2023 showed normal LVEF 55-60%, moderate diastolic dysfunction, RVSP 47 mmHg. Cont lasix & other cardioprudent meds. Do not limit po fluid intake.
[2023-05-18 16:14] LABS: Specific Gravity 1.007 (1.005-1.030); Urine Bacteria 20-50 /HPF (<20); Urine Bilirubin NEGATIVE (Negative); Urine Blood Trace (Negative); Urine Clarity Extremely Turbid (Clear); Urine Color Colorless (Yellow); Urine Glucose NEGATIVE (Negative); Urine Protein TRACE (Negative); Urine RBC <5 /HPF (None Seen); Urine Urobilinogen Normal (Normal); Urine WBC Clump Occasional /HPF (None Seen); Urine pH 7.5 (5.0-7.0)
[2023-05-18] MEDS: ENOXAPARIN 40 MG/0.4 ML SQ SCH (16:42)
[2023-05-18] MEDS: METOPROLOL TAR 50 MG TAB PO SCH (20:06)
[2023-05-18] MEDS: FINASTERIDE 5 MG TAB PO SCH (20:06)
[2023-05-18] MEDS: CIPROFLOXACIN HCL 250 MG TAB PO SCH (20:07)
[2023-05-18] MEDS: FAMOTIDINE 20 MG TAB PO SCH (20:07)
[2023-05-18] MEDS: TAMSULOSIN 0.4 MG SR CAP PO SCH (20:07)
[2023-05-18] MEDS: DIPHENHYDRAMINE 25 MG TAB/CAP PO PRN (20:07)
[2023-05-18] MEDS: ATORVASTATIN 40 MG TAB PO SCH (20:07)
[2023-05-19 04:53] LABS: Albumin 2.7 g/dL (3.4-5.0); Phosphorus 3.7 mg/dL (2.5-4.9); Potassium 3.8 mEq/L (3.5-5.1)
[2023-05-19] MEDS: LEVOTHYROXINE SOD 0.025 MG TAB PO SCH (05:28)
[2023-05-19] MEDS: CIPROFLOXACIN HCL 250 MG TAB PO SCH ×2 (08:15→20:29)
[2023-05-19] MEDS: ASPIRIN EC 81 MG TAB PO SCH (08:16)
[2023-05-19] MEDS: SPIRONOLACTONE 100 MG TAB PO SCH (08:17)
[2023-05-19] MEDS ORDERED: FUROSEMIDE 40 MG/4 ML VIAL IV SCH (09:00)
--- NOTE | 2023-05-19 13:30 | P.PN ---
Subjective Date of Service: 05/19/23 Chief Complaint: SHORT OF BREATH, SWELLING Subjective: Other (no complaints of inc shortness of breath.) Physical Examination - Vital Signs Temperature: 98.2 F Blood Pressure: 139/81 Pulse: 96 Respirations: 18 Pulse Ox (%): 97 - Physical Exam General: Other (chronically ill-appearing) HEENT: Atraumatic, Normocephalic Neck: Supple Respiratory: Other (symmetric chest expansion) Cardiovascular: No rubs, No murmurs Gastrointestinal: Soft and benign, No guarding Musculoskeletal: No clubbing Integumentary: No warmth Neurological: Normal tone Lymphatics: No axilla or inguinal lymphadenopathy Urinary: Other (no bladder distention) External genitalia: Deferred Rectal: Deferred - Studies Laboratory Data (last 24 hrs) 05/19/23 04:04 Sodium 140 Potassium 3.8 BUN 37 H Creatinine 2.07 H Glucose 97 Phosphorus 3.7 Microbiology Data (last 24 hrs): 05/16/23 10:20 Clean Catch Urine [place] Count - Final BETWEEN 10,000 & 100,000 CFU/ML 05/16/23 10:20 Clean Catch Urine - Final Proteus Mirabilis Medications List Reviewed: Yes Assessment And Plan - Plan 1. RUPERT 2/2 CRS1, r/o obstructive uropathy. Hx of RUPERT secondary to obstructive uropathy + prerenal state, improved w/ po hydration & higher dose tamsulosin. SCr plateauing at 2.0-2.1. Monitor for urinary retention. Encourage liberal po fluid intake at least 2L/d. Cont lasix, dc tomorrow if renal fxn not improved. 2. 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 Baseline SCr 1.3 (GFR 55 ml/min) as of 11/14/2022. Monitor renal panel. 3. BPH. Cont finasteride + flomax qhs. 4. Proteinuria. Statin. Low Na diet. Lasix. 5. Iron-deficiency anemia. On IV iron. 6. BLE edema. Cont IV lasix. 7. Coronary artery disease s/p CABG, acute on chronic diastolic HF. TTE on 05/16/2023 showed normal LVEF 55-60%, moderate diastolic dysfunction, RVSP 47 mmHg. Cont lasix & other cardioprudent meds. Do not limit po fluid intake.
[2023-05-19] MEDS: SOD FERRIC GLUC COMPLX/SUCROSE 250 MG in NA CHLORIDE 0.9% 250 ML IV SCH (14:10)
[2023-05-19] MEDS: ENOXAPARIN 40 MG/0.4 ML SQ SCH (16:14)
[2023-05-19] MEDS: METOPROLOL TAR 50 MG TAB PO SCH (20:29)
[2023-05-19] MEDS: TAMSULOSIN 0.4 MG SR CAP PO SCH (20:29)
[2023-05-19] MEDS: ATORVASTATIN 40 MG TAB PO SCH (20:29)
[2023-05-19] MEDS: DIPHENHYDRAMINE 25 MG TAB/CAP PO PRN (20:29)
[2023-05-19] MEDS: FINASTERIDE 5 MG TAB PO SCH (20:30)
[2023-05-19] MEDS: FAMOTIDINE 20 MG TAB PO SCH (20:30)
[2023-05-19 20:39] VITALS: O2SAT 94
--- NOTE | 2023-05-19 21:56 | P.PN ---
Subjective Date of Service: 05/19/23 Chief Complaint: SHORT OF BREATH, SWELLING Subjective: Improving NITZA HAS IMPROVED SOME WITH DYSPNEA. YESTERDAY HE WAS DYSPNEIC, ORTHOPNEIC AND VERY WEAK. HE HAS REFUSED TO TAKE ANTICOAGULATION FOR A FIB LONG I KNOW HIM. HE HAS NO CHEST PAIN. FOLLOWING IS HIS HISTORY. 2017 Vitamin B12 deficiency [E53.8] 2018 Benign prostatic hypertrophy [N40.0] 2014 Atrial fibrillation and flutter [I48.91, I48.92 0.3 0.3] REFUSES ANTICOAGULATION. REFUSES ANTICOAGULATION. 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 MAY BE AGER RELATED. FU LAB. MAY BE AGER RELATED. 2022 Anemia [D64.9] 2022 COPD (chronic obstructive pulmonary disease) [J44.9 0.3] HE IS LOT MORE INDEPENDENT HE IS NOT DYSPNEIC AT REST ANY LONGER. . Review of Systems 10-point ROS is otherwise unremarkable General: Weakness, Malaise Respiratory: Shortness of Breath Physical Examination - Vital Signs Temperature: 98.4 F Blood Pressure: 123/67 Pulse: 90 Respirations: 15 Pulse Ox (%): 94 - Physical Exam General: Oriented x3, Mild distress HEENT: Atraumatic, PERRLA, EOMI Neck: Supple, JVD not distended Respiratory: Clear to auscultation bilaterally, Normal air movement Cardiovascular: Regular rate/rhythm, Normal S1 S2 Gastrointestinal: Normal bowel sounds, No tenderness Musculoskeletal: No tenderness Integumentary: No rashes Neurological: Normal speech, Normal tone, Normal affect Lymphatics: No axilla or inguinal lymphadenopathy - Studies Laboratory Data (last 24 hrs) 05/19/23 04:04 Sodium 140 Potassium 3.8 BUN 37 H Creatinine 2.07 H Glucose 97 Phosphorus 3.7 Microbiology Data (last 24 hrs): 05/16/23 10:20 Clean Catch Urine [place] Count - Final BETWEEN 10,000 & 100,000 CFU/ML 05/16/23 10:20 Clean Catch Urine - Final Proteus Mirabilis Medications List Reviewed: Yes Assessment And Plan - Current Problems (Diagnosis) (1) Diastolic dysfunction with acute on chronic heart failure Current Visit: Yes Status: Acute Plan: CREAT HIGH TO 2.0 NOW WILL HOLD LASIX FOR COUPLE OF DAYS AND START 20 MG DAILY LATER CONTINUE SPIRONOLACTONE. (2) History of atrial fibrillation Current Visit: Yes Status: Chronic Plan: REFUSES TO TAKE AC MAY NEED WATCHMAN. ORDER VQ SCAN (3) HTN (hypertension) Current Visit: Yes Status: Chronic (4) CKD (chronic kidney disease) stage 3, GFR 30-59 ml/min Current Visit: Yes Status: Chronic Plan: CONSULT DR. ZENG NOT NEPHROTIC (5) Proteinuria Current Visit: Yes Status: Acute (6) Secondary thrombocytopenia Current Visit: Yes Status: Acute
[2023-05-20] MEDS: LEVOTHYROXINE SOD 0.025 MG TAB PO SCH (05:27)
[2023-05-20 05:38] VITALS: BMI 27.6
[2023-05-20 06:48] LABS: Albumin 2.3 g/dL (3.4-5.0); Phosphorus 3.5 mg/dL (2.5-4.9); Potassium 3.7 mEq/L (3.5-5.1)
[2023-05-20 08:01] VITALS: BP 114/61; TEMP 97.9
[2023-05-20] MEDS: SPIRONOLACTONE 100 MG TAB PO SCH (08:22)
[2023-05-20] MEDS: ASPIRIN EC 81 MG TAB PO SCH (08:22)
[2023-05-20] MEDS: CIPROFLOXACIN HCL 250 MG TAB PO SCH (08:22)
[2023-05-20 15:56] LABS: Albumin, (SPE) 2.7 g/dL (3.8-4.8); Alpha-1-Globulins 0.4 g/dL (0.2-0.3); Alpha-2-Globulins 0.7 g/dL (0.5-0.9); Gamma Globulins 1.3 g/dL (0.8-1.7); INTERPRETATION REPORT
--- NOTE | 2023-05-20 20:57 | P.DS ---
Admission Date: 05/15/23 Discharge Date: 05/20/23 Disposition: NC HOME/HOME HEALTH CARE Discharge Condition: FAIR Reason for Admission: SHORT OF BREATH, SWELLING - Problems (1) Diastolic dysfunction with acute on chronic heart failure Status: Acute (2) History of atrial fibrillation Status: Chronic (3) HTN (hypertension) Status: Chronic (4) CKD (chronic kidney disease) stage 3, GFR 30-59 ml/min Status: Chronic (5) Proteinuria Status: Acute (6) Secondary thrombocytopenia Status: Acute Hospital Course: Jony COMES WITH DYSPNEA, PND, ORTHOPNEA AT MY OFFICE. HE IS DIAGNOSED TO HAVE CHF, ACUTE DIASTOLIC HEART FAILURE WITH NEPHROTIC RANGE PROTEINURIA. HE IMPROVED ON LASIX IV BID, LATER DEVELOPED PRERENAL AZOTEMIA AND I STOPPED LASIX FOR A FEW DAYS. HE IS STABLE AND FEELING GREAT ON SPIRONOLACTONE 100 MG PO DAILY. I WILL FU ON LAB ROUTINELY. Vital Signs/Physical Exam: Temp Pulse Resp BP Pulse Ox 97.9 F 78 18 114/61 95 05/20/23 08:00 05/20/23 08:00 05/20/23 08:00 05/20/23 08:00 05/20/23 08:00 Laboratory Data at Discharge: WBC 5.90 thou/uL (4.3-10.9) 05/18/23 06:13 Hgb 9.0 g/dL (13.6-17.9) L 05/18/23 06:13 Hct 28.3 % (39.6-49.0) L 05/18/23 06:13 Plt Count 138 thou/uL (152-406) L 05/18/23 06:13 PT 13.1 SECONDS (9.5-12.5) H 05/15/23 17:30 INR 1.19 05/15/23 17:30 APTT 30.7 SECONDS (24.3-36.9) 05/15/23 17:30 Sodium 139 mEq/L (136-145) 05/20/23 06:20 Potassium 3.7 mEq/L (3.5-5.1) 05/20/23 06:20 BUN 36 mg/dL (7-18) H 05/20/23 06:20 Creatinine 2.22 mg/dL (0.70-1.30) H 05/20/23 06:20 Glucose 91 mg/dL (74-106) 05/20/23 06:20 Uric Acid 8.5 mg/dL (3.5-7.2) H 05/17/23 05:50 Phosphorus 3.5 mg/dL (2.5-4.9) 05/20/23 06:20 Magnesium 1.8 mg/dL (1.6-2.4) 05/15/23 17:30 Total Bilirubin 0.6 mg/dL (0.2-1.0) 05/15/23 17:30 AST 18 U/L (15-37) 05/15/23 17:30 ALT 18 U/L (16-61) 05/15/23 17:30 Alkaline Phosphatase 77 U/L (45-117) 05/15/23 17:30 Home Medications: Atorvastatin Calcium 40 mg PO DAILY 03/04/23 Finasteride 5 mg PO BEDTIME 03/04/23 Levothyroxine Sodium 25 mcg PO DAILY 03/04/23 Metoprolol Tartrate [Lopressor*] 50 mg PO BEDTIME 03/04/23 Tamsulosin [Flomax*] 0.4 mg PO BEDTIME 03/04/23 Aspirin [Aspirin EC 81 MG] 81 mg PO DAILY 05/15/23 Famotidine 1 tab PO BEDTIME 05/15/23 Acetaminophen [Tylenol*] 650 mg PO Q6H PRN tab 05/20/23 Ciprofloxacin HCl [Cipro 250 MG Tablet*] 250 mg PO BID #14 tab 05/20/23 Spironolactone [Aldactone*] 100 mg PO DAILY #90 tab 05/20/23 New Medications: Spironolactone [Aldactone*] 100 mg PO DAILY #90 tab Ciprofloxacin HCl [Cipro 250 MG Tablet*] 250 mg PO BID #14 tab Followup: David Austin MD [Primary Care Provider] -
== END 2023-05-20 10:55 | disposition home health service (06) | DRG 291 ==
LOC: 4TH 15:12
PROVIDERS: ADMIT Internal Medicine; ATTEND Internal Medicine
DX: I13.0 Hypertensive heart and chronic kidney disease with heart failure and stage 1 through stage 4 chronic kidney disease, or unspecified chronic kidney disease (principal); I50.33 Acute on chronic diastolic (congestive) heart failure; N39.0 Urinary tract infection, site not specified; I48.92 Unspecified atrial flutter; I48.20 Chronic atrial fibrillation, unspecified; N18.31 Chronic kidney disease, stage 3a; D63.1 Anemia in chronic kidney disease; D50.9 Iron deficiency anemia, unspecified; E78.5 Hyperlipidemia, unspecified; E53.8 Deficiency of other specified B group vitamins; H35.30 Unspecified macular degeneration; N40.0 Benign prostatic hyperplasia without lower urinary tract symptoms; D69.59 Other secondary thrombocytopenia; E03.9 Hypothyroidism, unspecified; K59.00 Constipation, unspecified; J44.9 Chronic obstructive pulmonary disease, unspecified; K57.30 Diverticulosis of large intestine without perforation or abscess without bleeding; I25.10 Atherosclerotic heart disease of native coronary artery without angina pectoris; R80.9 Proteinuria, unspecified; Z95.1 Presence of aortocoronary bypass graft; Z88.8 Allergy status to other drugs, medicaments and biological substances; Z79.890 Hormone replacement therapy; Z79.899 Other long term (current) drug therapy
CPT/HCPCS: 36415; 71045; 71046; 74176; 78582; 80048; 80069; 80076; 81001; 82306; 82570; 82607; 83735; 83880; 83970; 84100; 84156; 84165; 84439; 84443; 84550; 85025; 85379; 85610; 85730; 86021; 86038; 86160; 86225; 86430; 86803; 87077; 87086; 87088; 87186; 93306; 93970; 97116; 97161; 97530; A9540; A9558; J1650; J1940; J2916; J7050

== ENCOUNTER 2023-06-22 11:24 | Observation (INO) | payer OTHER ==
--- OUTSIDE RECORDS SUMMARY | 2023-06-22 11:26 | XMS REPORT | Continuity of Care Document ---
:1935 Author Organization [facility] t Address [address] [place] [address] [place] [id number] Care Team Providers Name Role Phone TALIA SCHULZ Primary Care Physician Unavailable KLAUS BERGER Attending Clinician Unavailable Klaus Berger MD Attending Clinician KLAUS BERGER Admitting Clinician Unavailable Payers Payer Name Policy Type Policy Number Effective Date Expiration Date [facility] [id number] 2021 [facility] 00:00:00 PPO Problems This patient has no known problems. Allergies, Adverse Reactions, Alerts Allergy Allergy Status Severity Reaction(s) Onset Inactive Treating Comm ents Source Name Type Date Date Clinician NO KNOWN Drug Active [facility] Social History Social Habit Start Date Stop Date Quantity Comments Source Sex Assigned At [birth year] [facility] 00:00:00 00:00:00 Medical Branch Smoking Status Start Date Stop Date Source Tobacco smoking consumption [facility] Branch Medications This patient has no known medications. Procedures Procedure Date / Time Performing Clinician Source Performed [facility] 2022-03-05 14:13:00 Klaus Berger [facility] Medical Branch Encounters Start End Encounter Admission Attending Care Care Encounter Source Date/Time Date/Time Type Type Clinicians Facility Department ID 2022-03-05 2022-03-05 Outpatient R DANIEL [facility] [id number] [facility] 08:30:02 23:59:00 KLAUS [facility] 2022-03-05 2022-03-05 [facility] [id number] [facility] 08:30:02 23:59:00 Encounter Klaus REYNAGA [id number] [facility] [id number] [facility] [id number] [facility] 806 Branch Results This patient has no known results.
[2023-06-22 11:56] LABS: Absolute Lymphocytes (CBC) 1.7 K/uL (0.7-4.9); Hematocrit 33.9 % (39.6-49.0); Lymphocytes % 21.8 % (15.3-44.8); MCV 83.4 fL (80-100); MPV 7.7 fL (7.6-11.3); Platelets 163 thou/uL (152-406); RBC Red Blood Cell Count 4.06 M/uL (4.33-5.43)
[2023-06-22] MEDS ORDERED: SOD POLYSTYREN SUL 15 GM/60 ML UCUP ONE ×3 (11:57→12:59)
[2023-06-22] MEDS ORDERED: NA CHLORIDE 0.9% 1,000 ML ONE (11:58)
--- NOTE | 2023-06-22 12:15 | RAD REPORT ---
EXAM DESCRIPTION: CT - Stone Protocol - 06/22/2023 11:53 am CLINICAL HISTORY: Abdominal pain. COMPARISON: May 2023 TECHNIQUE: Computed axial tomography of the abdomen pelvis was obtained without oral or IV contrast. Lack of IV and oral contrast limits evaluation of solid organs, appendix, bowel, and vessels. Segundo l reformatted images were obtained and reviewed. All CT scans are performed using dose optimization technique as appropriate and may include automated exposure control or mA/KV adjustment according to patient size. FINDINGS: A renal calculus is not seen. An ureteral calculus is not noted. A bladder calculus is not present. Renal cortical thinning. No hydronephrosis. Bladder distention. Cystic mass subcutaneous tissue posterior right pelvis is benign Cholelithiasis. Gallbladder wall not thickened. The liver, spleen, pancreas and adrenals appear grossly normal There is no evidence of diverticulitis. Mild prostatic enlargement IMPRESSION: Bladder distention Cholelithiasis without evidence cholecystitis
[2023-06-22 12:22] LABS: Albumin 3.3 g/dL (3.4-5.0); Bilirubin Direct 0.2 mg/dL (0-0.2); Bilirubin Indirect, Calculated 0.2 mg/dL (0.2-0.8); Bilirubin Total 0.4 mg/dL (0.2-1.0); Potassium 5.6 mEq/L (3.5-5.1)
[2023-06-22 12:23] LABS: Troponin High Sensitivity 100.6 pg/mL (<58.9)
[2023-06-22 12:25] LABS: Protime INR 1.04
--- NOTE | 2023-06-22 12:31 | RAD REPORT ---
EXAM DESCRIPTION: David Single View06/22/2023 12:16 pm CLINICAL HISTORY: cough COMPARISON: May 2023 FINDINGS: The lungs appear clear of acute infiltrate. The heart is mildly enlarged. Postsurgical ch anges involve the chest IMPRESSION: No acute abnormalities displayed
--- NOTE | 2023-06-22 12:39 | ER ---
Nurse's Notes [facility] Name: Jony Neville Age: 88 yrs Sex: Male : 1935 Arrival Date: 06/22/2023 Time: 11:24 Bed 16 Private MD: Diagnosis: Hyperkalemia;Paroxysmal atrial fibrillation;Unspecified kidney failure-chronic;Nausea;Non ST elevation [facility] Presentation: 06/22 11:36 Chief complaint: Patient's son or daughter states: has been on diuretics, they stopped iw the spironolactone on Saturday , had labs done yesterday and was told his potassium was high (5.7) per Dr. Austin . pt reports feeling nauseated but no vomiting or diarrhea. Coronavirus screen: At this time, the client does not indicate any symptoms associated with coronavirus-19. Ebola Screen: Patient negative for fever greater than or equal to 101.5 degrees Fahrenheit, and additional compatible Ebola Virus Disease symptoms Patient denies exposure to infectious person. Patient denies travel to an Ebola-affected area in the 21 days before illness onset. No symptoms or risks identified at this time. 11:36 Method Of Arrival: Ambulatory iw 11:36 Acuity: JULIA 3 iw 11:40 Initial Sepsis Screen: Does the patient meet any 2 criteria? HR > 90 bpm. No. Patient's nj1 initial sepsis screen is negative. Does the patient have a suspected source of infection? No. Patient's initial sepsis screen is negative. Risk Assessment: Do you want to hurt yourself or someone else? Patient reports no desire to harm self or others. Onset of symptoms was June 2023. Historical: - Allergies: 12:03 No Known Allergies; nj1 - Home Meds: 11:38 tamsulosin 0.4 mg oral capsule [Active]; metoprolol tartrate 50 mg Oral tablet iw [Active]; finasteride 5 mg oral tablet daily [Active]; aspirin 81 mg Oral capsule daily [Active]; levothyroxine 25 mcg tablet [Active]; furosemide 20 mg Oral tablet daily [Active]; spironolactone 100 mg Oral tablet stopped on Saturday [Active]; - PSHx: 11:38 open heart surgery; iw - Immunization history:: Adult Immunizations not up to date. - Social history:: Smoking status: . Screenin:02 [facility] ED Fall Risk Assessment (Adult) Score/Fall Risk Level 0 - 2 = Low Risk nj1 Oriented to surroundings, Maintained a safe environment, Hourly rounding (assess needs \T\ fall precautionary measures) done. Abuse screen: Denies threats or abuse. Denies injuries from another. Nutritional screening: No deficits noted. Tuberculosis screening: No symptoms or risk factors identified. Assessment: 11:40 General: Appears in no apparent distress. comfortable, Behavior is calm, cooperative, nj1 appropriate for age. 11:40 Pain: Denies pain. Neuro: Level of Consciousness is awake, alert, obeys commands, nj1 Oriented to person, place, time, situation. Cardiovascular: Patient's skin is warm and dry. Rhythm is irregular. Respiratory: Airway is patent Respiratory effort is even, unlabored. GI: Reports nausea. 12:45 Reassessment: Patient appears in no apparent distress at this time. Patient and/or nj1 family updated on plan of care and expected duration. Pain level reassessed. Patient is alert, oriented x 3, equal unlabored respirations, skin warm/dry/pink. Patient denies pain at this time. 13:56 Reassessment: Patient appears in no apparent distress at this time. Patient and/or nj1 family updated on plan of care and expected duration. Pain level reassessed. Patient is alert, oriented x 3, equal unlabored respirations, skin warm/dry/pink. Patient denies pain at this time. Vital Signs: 11:40 BP 131 / 86; Pulse 96; Resp 18; Temp 97.8(O); Pulse Ox 100% ; Weight 81.65 kg; Height 6 nj1 ft. 3 in. ; Pain 0/10; 12:13 BP 136 / 80; Pulse 91; Resp 21; Pulse Ox 100% ; nj1 12:45 BP 130 / 82; Pulse 86; Resp 17; Pulse Ox 100% on R/A; nj1 13:56 BP 143 / 93; Pulse 90; Resp 21; Pulse Ox 100% on R/A; nj1 11:40 Body Mass Index 22.50 (81.65 kg, 190.5 cm) nj1 11:40 Pain Scale: Adult [facility] ED Course: 11:25 Patient arrived in ED. rg4 11:29 Nicol Rodriguez, RN is Primary Nurse. nj1 11:34 Tez Pierce MD is Attending Physician. thanh 11:38 Triage completed. iw 11:40 Arm band placed on. iw 11:40 Client placed on continuous cardiac and pulse oximetry monitoring. NIBP monitoring nj1 applied. 11:40 Patient has correct armband on for positive identification. Bed in low position. Call nj1 light in reach. Side rails up X 1. Adult w/ patient. Provided Education on: call light, fall precautions. 11:40 Thermoregulation: warm blanket given to patient. nj1 11:45 Inserted saline lock: 20 gauge in left forearm, using aseptic technique. Blood nj1 collected. 11:54 CT Stone Protocol In Process Unspecified. EDMS 12:18 XRAY Chest (1 view) In Process Unspecified. EDMS 12:37 Jessie Aquino MD is Hospitalizing Provider. thanh 14:05 Notified ED physician of other Pt unable to void, orders to bladder scan and place nj1 clark cath if volume >100ml as PVR, per Dr Pierce. 14:08 Bladder scan completed. 860. nj1 14:10 Clark cath inserted, using sterile technique, 18 Fr., by pr, balloon inflated, to nj1 gravity drainage, clamped. urine specimen collected. 14:44 No provider procedures requiring assistance completed. Patient admitted, IV remains in nj1 place. 15:00 Clark unclamped. nj1 Administered Medications: 12:00 Drug: NS 0.9% IV 1000 ml IV at 125 ml/hr continuous Route: IV; Rate: 125 ml/hr; Site: [facility] left forearm; 15:11 Follow up: Response: No adverse reaction; IV Status: Infusion continued upon admission; nj1 IV Intake: 375ml 12:32 Drug: Kayexalate PO 30 grams PO once Route: PO; nj1 15:11 Follow up: Response: No adverse reaction nj1 12:58 Drug: Famotidine IVP 20 mg IVP once; dilute with 10 mL 0.9% NaCl; give over 2 minutes nj1 Route: IVP; Site: left forearm; 15:10 Follow up: Response: No adverse reaction nj1 12:59 Drug: Enoxaparin Sub-Q 1 mg/kg Sub-Q once Route: Sub-Q; Site: left lower abdomen; nj1 15:10 Follow up: Response: No adverse reaction nj1 13:00 Drug: Metoprolol PO 50 mg PO once Route: PO; nj1 15:11 Follow up: Response: No adverse reaction nj1 13:00 Drug: Kayexalate PO 30 grams PO once Route: PO; nj1 15:10 Follow up: Response: No adverse reaction nj1 13:01 Drug: Albuterol Inhalation 2.5 mg Inhalation once Route: Inhalation; nj1 15:11 Follow up: Response: No adverse reaction nj1 13:01 Drug: Ipratropium Inhalation Aerosol 0.5 mg Inhalation once Route: Inhalation; nj1 15:10 Follow up: Response: No adverse reaction nj1 Medication: 14:46 VIS not applicable for this client. nj1 Intake: 15:11 IV: 375ml; Total: 375ml. nj1 Output: 15:00 Urine: 550ml (Clark); Total: 550ml. nj1 Outcome: 12:39 Decision to Hospitalize by Provider. thanh 14:45 Admitted to Med/surg accompanied by tech, via stretcher, room 232, Report called to marcus Coronado RN 14:45 Condition: stable 14:45 Instructed on the need for admit, 15:09 Patient left the ED. nj1 Signatures: Dispatcher [employer] EDTez Alvarado MD MD cha Williams, Irene, RN Kayli Moreno 4 Nicol Rodriguez RN RN nj1 Corrections: (The following items were deleted from the chart) 14:18 14:17 Reassessment: hiThony nj
--- NOTE | 2023-06-22 12:40 | EDPHYS ---
Physician Documentation [facility] Name: Jony Neville Age: 88 yrs Sex: Male : 1935 Arrival Date: 06/22/2023 Time: 11:24 Bed 16 Private MD: ED Physician Tez Pierce HPI: 06/22 12:16 This 88 yrs old Male presents to ER via Ambulatory with complaints of thanh Abnormal Lab Results. 12:16 high potassium. Onset: The symptoms/episode began/occurred 3 day(s) ago. Severity of thanh symptoms: At their worst the symptoms were very mild in the emergency department the symptoms are unchanged. The patient has not experienced similar symptoms in the past. Historical: - Allergies: 12:03 No Known Allergies; nj1 - Home Meds: 11:38 tamsulosin 0.4 mg oral capsule [Active]; metoprolol tartrate 50 mg Oral tablet iw [Active]; finasteride 5 mg oral tablet daily [Active]; aspirin 81 mg Oral capsule daily [Active]; levothyroxine 25 mcg tablet [Active]; furosemide 20 mg Oral tablet daily [Active]; spironolactone 100 mg Oral tablet stopped on Saturday [Active]; - PSHx: 11:38 open heart surgery; iw - Immunization history:: Adult Immunizations not up to date. - Social history:: Smoking status: . ROS: 12:19 Constitutional: Negative for fever, chills, and weight loss, Eyes: Negative for injury, thanh pain, redness, and discharge, ENT: Negative for injury, pain, and discharge, Neck: Negative for injury, pain, and swelling, Cardiovascular: Negative for chest pain, palpitations, and edema, Respiratory: Negative for shortness of breath, cough, wheezing, and pleuritic chest pain, Back: Negative for injury and pain, : Negative for injury, bleeding, discharge, and swelling, MS/Extremity: Negative for injury and deformity, Skin: Negative for injury, rash, and discoloration, Neuro: Negative for headache, weakness, numbness, tingling, and seizure, Psych: Negative for depression, anxiety, suicide ideation, homicidal ideation, and hallucinations, Allergy/Immunology: Negative for hives, rash, and allergies, Endocrine: Negative for neck swelling, polydipsia, polyuria, polyphagia, and marked weight changes, Hematologic/Lymphatic: Negative for swollen nodes, abnormal bleeding, and unusual bruising, 12:19 Abdomen/GI: Positive for nausea and vomiting, Exam: 12:19 Constitutional: This is a well developed, well nourished patient who is awake, alert, thanh and in no acute distress. Head/Face: Normocephalic, atraumatic. Eyes: Pupils equal round and reactive to light, extra-ocular motions intact. Lids and lashes normal. Conjunctiva and sclera are non-icteric and not injected. Cornea within normal limits. Periorbital areas with no swelling, redness, or edema. ENT: Nares patent. No nasal discharge, no septal abnormalities noted. Tympanic membranes are normal and external auditory canals are clear. Oropharynx with no redness, swelling, or masses, exudates, or evidence of obstruction, uvula midline. Mucous membranes moist. Neck: Trachea midline, no thyromegaly or masses palpated, and no cervical lymphadenopathy. Supple, full range of motion without nuchal rigidity, or vertebral point tenderness. No Meningismus. Chest/axilla: Normal chest wall appearance and motion. Nontender with no deformity. No lesions are appreciated. Cardiovascular: Regular rate and rhythm with a normal S1 and S2. No gallops, murmurs, or rubs. Normal PMI, no JVD. No pulse deficits. Respiratory: Lungs have equal breath sounds bilaterally, clear to auscultation and percussion. No rales, rhonchi or wheezes noted. No increased work of breathing, no retractions or nasal flaring. Back: No spinal tenderness. No costovertebral tenderness. Full range of motion. Male : Normal genitalia with no discharge or lesions. Skin: Warm, dry with normal turgor. Normal color with no rashes, no lesions, and no evidence of cellulitis. MS/ Extremity: Pulses equal, no cyanosis. Neurovascular intact. Full, normal range of motion. Neuro: Awake and alert, GCS 15, oriented to person, place, time, and situation. Cranial nerves II-XII grossly intact. Motor strength 5/5 in all extremities. Sensory grossly intact. Cerebellar exam normal. Normal gait. Psych: Awake, alert, with orientation to person, place and time. Behavior, mood, and affect are within normal limits. 12:19 ECG was reviewed by the Attending Physician. 12:19 Abdomen/GI: Inspection: distension, Bowel sounds: normal, Palpation: soft, Liver: no appreciated palpable abnormalities, Hernia: not appreciated, Vital Signs: 11:40 BP 131 / 86; Pulse 96; Resp 18; Temp 97.8(O); Pulse Ox 100% ; Weight 81.65 kg; Height 6 nj1 ft. 3 in. ; Pain 0/10; 12:13 BP 136 / 80; Pulse 91; Resp 21; Pulse Ox 100% ; nj1 12:45 BP 130 / 82; Pulse 86; Resp 17; Pulse Ox 100% on R/A; nj1 13:56 BP 143 / 93; Pulse 90; Resp 21; Pulse Ox 100% on R/A; nj1 11:40 Body Mass Index 22.50 (81.65 kg, 190.5 cm) nj1 11:40 Pain Scale: Adult nj1 MDM: 11:34 Patient medically screened. thanh 12:22 Differential diagnosis: Nonspecific abd pain. Differential Diagnosis altered mental thanh status. Data reviewed: vital signs, nurses notes, lab test result(s), EKG, radiologic studies, plain films. Consideration of Admission/Observation Patient was admitted/placed on observation. Escalation of care including admission/observation considered. I considered the following discharge prescriptions or medication management in the emergency department Medications were administered in the Emergency Department. See MAR. Independent interpretation of the following test(s) in the Emergency Department EKG: See my EKG interpretation above. Test considered but Not performed: Ultrasound no renal usg. Historians other than the Patient: Daughter/Son: son , well informed. Care significantly affected by the following chronic conditions: Hypertension, Chronic Kidney Disease. 06/22 11:37 Order name: Basic Metabolic Panel; Complete Time: 12:30 [facility] 06/22 11:37 Order name: CBC with Diff thanh 06/22 11:37 Order name: LFT's; Complete Time: 12:30 [facility] 06/22 11:37 Order name: Magnesium; Complete Time: 12:30 [facility] 06/22 11:37 Order name: NT PRO-BNP; Complete Time: 12:30 [facility] 06/22 11:37 Order name: PT-INR; Complete Time: 12:30 [facility] 06/22 11:37 Order name: Troponin HS; Complete Time: 12:30 [facility] 06/22 11:37 Order name: Lipase; Complete Time: 12:30 [facility] 06/22 11:37 Order name: Urinalysis w/ reflexes thanh 06/22 12:46 Order name: CBC Smear Scan EDMS 06/22 13:43 Order name: T4 Free EDMS 06/22 13:43 Order name: Thyroid Stimulating Hormone EDMS 06/22 13:43 Order name: Urinalysis w/ reflexes EDMS 06/22 13:43 Order name: Basic Metabolic Panel EDMS 06/22 13:43 Order name: Basic Metabolic Panel EDMS 06/22 13:43 Order name: Basic Metabolic Panel EDMS 06/22 13:43 Order name: Basic Metabolic Panel EDMS 06/22 13:43 Order name: Basic Metabolic Panel EDMS 06/22 13:43 Order name: Basic Metabolic Panel EDMS 06/22 13:43 Order name: CBC with Automated Diff EDMS 06/22 13:43 Order name: CBC with Automated Diff EDMS 06/22 13:43 Order name: CBC with Automated Diff EDMS 06/22 13:43 Order name: CBC with Automated Diff EDMS 06/22 13:43 Order name: CBC with Automated Diff EDMS 06/22 13:43 Order name: CBC with Automated Diff EDMS 06/22 13:43 Order name: Magnesium EDMS 06/22 13:43 Order name: Magnesium EDMS 06/22 13:43 Order name: Magnesium EDMS 06/22 13:43 Order name: Magnesium EDMS 06/22 13:43 Order name: Magnesium EDMS 06/22 13:43 Order name: Magnesium EDMS 06/22 13:43 Order name: Phosphorus EDMS 06/22 13:43 Order name: Phosphorus EDMS 06/22 13:43 Order name: Phosphorus EDMS 06/22 13:43 Order name: Phosphorus EDMS 06/22 13:43 Order name: Phosphorus EDMS 06/22 13:43 Order name: Phosphorus EDMS 06/22 13:43 Order name: Troponin High Sensitivity EDMS 06/22 13:43 Order name: Troponin High Sensitivity EDMS 06/22 13:43 Order name: Troponin High Sensitivity EDMS 06/22 13:44 Order name: Potassium EDMS 06/22 11:37 Order name: XRAY Chest (1 view); Complete Time: 12:31 thanh 06/22 11:37 Order name: CT Stone Protocol; Complete Time: 12:30 thanh 06/22 11:37 Order name: EKG; Complete Time: 11:37 [facility] 06/22 13:43 Order name: CONS Physician Consult [facility] 06/22 13:43 Order name: Physical Therapy Consult [facility] 06/22 11:37 Order name: Cardiac monitoring; Complete Time: 11:42 [facility] 06/22 11:37 Order name: EKG - Nurse/Tech; Complete Time: 11:42 [facility] 06/22 11:37 Order name: IV Saline Lock; Complete Time: 11:52 [facility] 06/22 11:37 Order name: Labs collected and sent; Complete Time: 11:52 [facility] 06/22 11:37 Order name: O2 Per Protocol; Complete Time: 11:42 [facility] 06/22 11:37 Order name: O2 Sat Monitoring; Complete Time: 11:42 [facility] 06/22 12:31 Order name: Bladder Scanner: if pvr greater than 100 , clark; Complete Time: 14:16 [facility] 06/22 12:31 Order name: Clark: if pvr greater than 100; Complete Time: 14:16 [facility] EC:19 Rate is 79 beats/min. Rhythm is irregularly irregular. QRS [place] is Normal. [place] interval thanh is normal. QRS interval is normal. QT interval is normal. No Q waves. T waves are Normal. No ST changes noted. Clinical impression: Atrial Fibrillation and No evidence of ischemia. Interpreted by me. Reviewed by me. Administered Medications: 12:00 Drug: NS 0.9% IV 1000 ml IV at 125 ml/hr continuous Route: IV; Rate: 125 ml/hr; Site: [facility] left forearm; 15:11 Follow up: Response: No adverse reaction; IV Status: Infusion continued upon admission; nj1 IV Intake: 375ml 12:32 Drug: Kayexalate PO 30 grams PO once Route: PO; nj1 15:11 Follow up: Response: No adverse reaction nj1 12:58 Drug: Famotidine IVP 20 mg IVP once; dilute with 10 mL 0.9% NaCl; give over 2 minutes nj1 Route: IVP; Site: left forearm; 15:10 Follow up: Response: No adverse reaction nj1 12:59 Drug: Enoxaparin Sub-Q 1 mg/kg Sub-Q once Route: Sub-Q; Site: left lower abdomen; nj1 15:10 Follow up: Response: No adverse reaction nj1 13:00 Drug: Metoprolol PO 50 mg PO once Route: PO; nj1 15:11 Follow up: Response: No adverse reaction nj1 13:00 Drug: Kayexalate PO 30 grams PO once Route: PO; nj1 15:10 Follow up: Response: No adverse reaction nj1 13:01 Drug: Albuterol Inhalation 2.5 mg Inhalation once Route: Inhalation; nj1 15:11 Follow up: Response: No adverse reaction nj1 13:01 Drug: Ipratropium Inhalation Aerosol 0.5 mg Inhalation once Route: Inhalation; nj1 15:10 Follow up: Response: No adverse reaction nj1 Disposition Summary: 06/22/23 12:39 Hospitalization Ordered Notes: Hospitalization Status: Inpatient Admission thanh Provider: Jessie Aquino cha Location: Telemetry/MedSurg (Inpatient) thanh Condition: Fair thanh Problem: new thanh Symptoms: are unchanged thanh Bed/Room Type: Standard thanh Room Assignment: 232(06/22/23 13:53) eb Diagnosis - Hyperkalemia thanh - Paroxysmal atrial fibrillation thanh - Unspecified kidney failure - chronic thanh - Nausea thanh - Non ST elevation DC thanh Forms: - Medication Reconciliation Form thanh - SBAR form thanh - Leadership Thank You Letter thanh Signatures: Dispatcher [employer] Tez Estevez MD MD cha Williams, Irene, RN Jerri Cerda Norma, RN RN nj1 Corrections: (The following items were deleted from the chart) 13:53 12:39 thanh eb
[2023-06-22 12:46] LABS: Anisocytosis 2+; Blood Morphology Comment NOTED (NOT SEEN); Platelet Estimate ADEQ; White Blood Cell Scan OK (OK)
[2023-06-22] MEDS ORDERED: IPRATROPIUM BROM 0.5MG/2.5ML ONE (12:59)
[2023-06-22] MEDS ORDERED: METOPROLOL TAR 50 MG TAB ONE (12:59)
[2023-06-22] MEDS ORDERED: ALBUTEROL 2.5 MG/3 ML NEB SOL ONE (12:59)
[2023-06-22] MEDS ORDERED: ENOXAPARIN 80 MG/0.8 ML SQ ONE (12:59)
[2023-06-22] MEDS ORDERED: FAMOTIDINE 20 MG/2 ML VIAL IV ONE (13:00)
--- NOTE | 2023-06-22 13:49 | P.HP ---
Certification for Inpatient Patient admitted to: Observation With expected LOS: <2 Midnights Patient will require the following post-hospital care: None Practitioner: I am a practitioner with admitting privileges, knowledge of patient current condition, hospital course, and medical plan of care. Services: Services provided to patient in accordance with Admission requirements found in Title 42 Section 412.3 of the Code of Federal Regulations Patient History Date of Service: 06/22/23 Reason for admission: Hyperkalemia History of Present Illness: Jony Neville is an 88-year-old male with past medical history of coronary artery disease (3 three-vessel bypass 15 years ago ), hypothyroidism, hypertension, hyperlipidemia, congestive heart failure, atrial fibrillation who presents to the ED due to abnormal lab value of potassium 5.6. Jony reports being treated in May for fluid volume overload at which time he was successfully diuresed and discharged home with Aldactone. Aldactone was stopped recently and labs were drawn at Dr. Austin's office where hyperkalemia was found. On arrival to the ED his only symptom was some nausea. Rate controlled atrial fibrillation was found on the EKG, Jony reports not taking any medication for this condition and states having an ablation several years ago. Initial vitals BP 131 / 86; Pulse 96; Resp 18; Temp 97.8(O); Pulse Ox 100% . Significant labs potassium 5.6, bicarb 21, BUN/creatinine 53/1.97, GFR 32, troponin 100.6, BNP 2991. CT abd reports : Cystic mass subcutaneous tissue posterior right pelvis is benign, bladder distention" CXR reports "The lungs appear clear of acute infiltrate. The heart is mildly enlarged. Postsurgical changes involve the chest, No acute abnormalities displa yed" Of note Jony is a patient of Dr. Austin. Jony will be admitted to hospitalist service for further evaluation and treatment. Allergies zolpidem tartrate [From Ambien] Adverse Reaction (Intermediate, Verified 03/12/23 08:20) hallucinations Home Medications: Atorvastatin Calcium 40 mg PO DAILY 03/04/23 Finasteride 5 mg PO BEDTIME 03/04/23 Levothyroxine Sodium 25 mcg PO DAILY 03/04/23 Metoprolol Tartrate [Lopressor*] 50 mg PO BEDTIME 03/04/23 Tamsulosin [Flomax*] 0.4 mg PO BEDTIME 03/04/23 Aspirin [Aspirin EC 81 MG] 81 mg PO DAILY 05/15/23 Famotidine 1 tab PO BEDTIME 05/15/23 Acetaminophen [Tylenol*] 650 mg PO Q6H PRN tab 05/20/23 Ciprofloxacin HCl [Cipro 250 MG Tablet*] 250 mg PO BID #14 tab 05/20/23 Spironolactone [Aldactone*] 100 mg PO DAILY #90 tab 05/20/23 - Past Medical/Surgical History Diabetic: No -: bypass sx -: afib -: high cholesterol -: htn -: sx right eye 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 muscles -: bypass sx, unsure why - Family History Father -: Heart disease, Hypertension - Social History Alcohol use: No CD- Drugs: No Caffeine use: Yes Review of Systems General: Unremarkable Eyes: Unremarkable ENT: Unremarkable Respiratory: Unremarkable Cardiovascular: Unremarkable Gastrointestinal: Nausea, Unremarkable Genitourinary: Unremarkable Musculoskeletal: Unremarkable Integumentary: Unremarkable Neurological: Unremarkable Physical Examination - Physical Exam General: Alert, In no apparent distress, Oriented x3 HEENT: Atraumatic, Normocephalic, PERRLA Neck: Supple, 2+ carotid pulse no bruit, JVD not distended Respiratory: Clear to auscultation bilaterally, Normal air movement Cardiovascular: Edema (2+ pitting edema) Capillary refill: <2 Seconds Gastrointestinal: Normal bowel sounds, Soft and benign Musculoskeletal: No clubbing, No swelling, No contractures Integumentary: No rashes, No breakdown, No significant lesion Neurological: Normal speech, Normal strength at 5/5 x4 extr, Normal tone - Studies Laboratory Data (last 24 hrs) 06/22/23 06/22/23 06/22/23 11:45 11:45 11:45 WBC 7.80 Hgb 11.0 L Hct 33.9 L Plt Count 163 PT 11.4 INR 1.04 Sodium 131 L Potassium 5.6 H BUN 53 H Creatinine 1.97 H Glucose 101 Magnesium 2.0 Total Bilirubin 0.4 AST 36 ALT 48 Alkaline Phosphatase 91 Lipase 108 H Assessment and Plan - Plan Assessment and plan Hyperkalemia in patient with chronic renal failure Chronic renal failure Hyponatremia Nausea k 5.6, Na 131 BUN/creatinine 53/1.97, GFR [address] Justin Hunterxalate, ipratropium, Proventil given in the ED IVF given in ED Congestive heart failure-diastolic Elevated troponin CAD s/p three-vessel bypass 15 years ago Persistent A-fib Controlled A-fib with heart rate 96 TSH/T4 pending Lovenox given in the ED Troponin 100.6, Serial pending BNP 2991 Hypothyroidism TSH/T4 pending Restart home levothyroxine DVT PPx Lovenox Full code LOS 24 hours Discharge Plan: Home Plan to discharge in: 24 Hours - Advance Directives Does patient have a Living Will: No Does patient have a Durable POA for Healthcare: No Time Spent Managing Pts Care (In Minutes): 55
[2023-06-22 15:13] LABS: Specific Gravity 1.012 (1.005-1.030); Urine Bacteria None Seen /HPF (<20); Urine Bilirubin NEGATIVE (Negative); Urine Blood Negative (Negative); Urine Clarity Clear (Clear); Urine Color Light-Yellow (Yellow); Urine Glucose NEGATIVE (Negative); Urine Protein 1+ (Negative); Urine RBC <5 /HPF (None Seen); Urine Urobilinogen Normal (Normal)
--- NOTE | 2023-06-22 15:32 | P.CNS ---
Date of Consult: 06/22/23 Reason for Consult: CKD, hyperkalemia Chief Complaint: abnromal labs History of Present Illness: This is An 88year-old gentleman with significant past medical history of hypertension, hyperlipidemia, B12 deficiency, hypothyroidism, benign prostate hypertrophy, atrial fibrillation, CAD with status post CABG in 2010, chronic kidney disease baseline cr 1.8-2.0, pt was sent for abnromal labs, pt was admitted last month for CHF exacerbation and RUPERT , he was discharged on lasix and Aldactone, labs from yesterday showed K 6.4, sent for further evaluation ROS General: weakness Head and Neck: No red eye. No ear pain. GI: denied nausea, voimiting or diarrhea : No polyuria. No dysuria. No hematuria. Chucker: No vaginal discharge. Respiratory: denied shortness of breath.or cough Cardiovascular:have leg swelling , No chest pain. or leg swelling. Endocrine: No polydipsia. Skin: No rash. Neuro: Has weakness. Wobbly gait. Musculoskeletal: Generalized fatigue. Physical exam General: Awake, NAD , looks chronically ill HEENT: Atraumatic, Normocephalic Neck: Supple, no elevated JVD Respiratory: CTAB Cardiovascular: No rubs, No murmurs Gastrointestinal: Soft and benign, Non-distended, clark catheter EXT : edema A/P # RUPERT on HTN CKD III due to HTN + CRS1, + obstructive uropathy. Cr stable renal diet renal dose meds avoid NSAID #Hyperkaleia due to CKD and ALdactone S/P S/ kayexalate will give Lokelma #. BPH. Cont finasteride + flomax qhs. Clark catheter for now # BLE edema. Cont lasix. Low salt diet #. Coronary artery disease s/p CABG, TTE on 05/16/2023 showed normal LVEF 55-60%, moderate diastolic dysfunction, RVSP 47 mmHg. Cont lasix & other cardioprudent meds. . Allergies zolpidem tartrate [From Ambien] Adverse Reaction (Intermediate, Verified 03/12/23 08:20) hallucinations Home Medications: Atorvastatin Calcium 40 mg PO DAILY 03/04/23 Finasteride 5 mg PO BEDTIME 03/04/23 Levothyroxine Sodium 25 mcg PO DAILY 03/04/23 Metoprolol Tartrate [Lopressor*] 50 mg PO BEDTIME 03/04/23 Tamsulosin [Flomax*] 0.4 mg PO BEDTIME 03/04/23 Aspirin [Aspirin EC 81 MG] 81 mg PO DAILY 05/15/23 Famotidine 1 tab PO BEDTIME 05/15/23 Acetaminophen [Tylenol*] 650 mg PO Q6H PRN tab 05/20/23 Ciprofloxacin HCl [Cipro 250 MG Tablet*] 250 mg PO BID #14 tab 05/20/23 Spironolactone [Aldactone*] 100 mg PO DAILY #90 tab 05/20/23 - Past Medical/Surgical History Diabetic: No -: bypass sx -: afib -: high cholesterol -: htn -: 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
[2023-06-22 15:33] VITALS: O2SAT 100
[2023-06-22 16:49] VITALS: BMI 21.6
[2023-06-22] MEDS ORDERED: SODIUM ZIRCONIUM CYCLOSILICATE 10 GM/PKT PO ONE (20:00)
[2023-06-22] MEDS ORDERED: FAMOTIDINE 20 MG TAB PO SCH (21:00)
[2023-06-22] MEDS ORDERED: METOPROLOL TAR 50 MG TAB PO SCH (21:00)
[2023-06-22] MEDS ORDERED: TAMSULOSIN 0.4 MG SR CAP PO SCH (21:00)
[2023-06-22] MEDS ORDERED: FINASTERIDE 5 MG TAB PO SCH (21:00)
[2023-06-23 03:36] LABS: Absolute Lymphocytes (CBC) 1.2 K/uL (0.7-4.9); Hematocrit 29.8 % (39.6-49.0); MCV 82.9 fL (80-100); MPV 8.3 fL (7.6-11.3); Platelets 143 thou/uL (152-406); RBC Red Blood Cell Count 3.59 M/uL (4.33-5.43)
[2023-06-23 04:04] LABS: Magnesium 1.7 mg/dL (1.6-2.4); Phosphorus 4.4 mg/dL (2.5-4.9); Potassium 4.3 mEq/L (3.5-5.1); Thyroid Stimulating Hormone 1.68 uIU/mL (0.358-3.740)
[2023-06-23] MEDS ORDERED: MAGNESIUM SULFATE 1 gm IVPB 1 GM/100 ML BAG IV ONE (05:48)
[2023-06-23 08:53] VITALS: BP 112/58; TEMP 97.6
[2023-06-23] MEDS ORDERED: ENOXAPARIN 40 MG/0.4 ML SQ SCH (09:00)
[2023-06-23] MEDS ORDERED: LEVOTHYROXINE SOD 0.025 MG TAB PO SCH (09:00)
--- NOTE | 2023-06-23 10:33 | P.PN ---
Subjective Date of Service: 06/23/23 Chief Complaint: abnromal labs This is An 88year-old gentleman with significant past medical history of hypertension, hyperlipidemia, B12 deficiency, hypothyroidism, benign prostate hypertrophy, atrial fibrillation, CAD with status post CABG in 2010, chronic kidney disease baseline cr 1.8-2.0, pt was sent for abnromal labs, pt was admitted last month for CHF exacerbation and RUPERT , he was discharged on lasix and Aldactone, labs from yesterday showed K 6.4, sent for further evaluation Today No overnight events Cr improved K normalized Can be discahrge from nephrology point of view to be discharged with Clark and follow with Urology as an OP Physical exam General: Awake, NAD , looks chronically ill HEENT: Atraumatic, Normocephalic Neck: Supple, no elevated JVD Respiratory: CTAB Cardiovascular: No rubs, No murmurs Gastrointestinal: Soft and benign, Non-distended, clark catheter EXT : edema A/P # RUPERT on HTN CKD III due to HTN + CRS1, + obstructive uropathy. Cr down to 1.66 renal diet renal dose meds avoid NSAID #Hyperkaleia resolved due to CKD and ALdactone S/P S/ kayexalate #. BPH. Cont finasteride + flomax qhs. Pt was on finasetride and Flomax at Home, still cont to retain urine Cont Clark catheter Urology evaluation as an OP # BLE edema. Cont lasix. Low salt diet #. Coronary artery disease s/p CABG, TTE on 05/16/2023 showed normal LVEF 55-60%, moderate diastolic dysfunction, RVSP 47 mmHg. Cont lasix & other cardioprudent meds. . Physical Examination - Vital Signs Temperature: 97.6 F Blood Pressure: 112/58 Pulse: 56 Respirations: 16 Pulse Ox (%): 97 - Studies Laboratory Data (last 24 hrs) 06/22/23 06/22/23 06/22/23 11:45 11:45 11:45 WBC 7.80 Hgb 11.0 L Hct 33.9 L Plt Count 163 PT 11.4 INR 1.04 Sodium 131 L Potassium 5.6 H BUN 53 H Creatinine 1.97 H Glucose 101 Magnesium 2.0 Total Bilirubin 0.4 AST 36 ALT 48 Alkaline Phosphatase 91 Lipase 108 H
[2023-06-23] MEDS ORDERED: INFLUENZA VACCINE (for 6+ mo) 0.5 ML DOSE IMVAC ONE (12:00)
== END 2023-06-23 15:40 | disposition home or self-care (01) ==
LOC: ER 11:24 → ERHOLD 14:06 → 2ND 14:43
PROVIDERS: ADMIT Hospitalist; ATTEND Hospitalist
DX: N17.9 Acute kidney failure, unspecified (principal); I12.9 Hypertensive chronic kidney disease with stage 1 through stage 4 chronic kidney disease, or unspecified chronic kidney disease; N18.30 Chronic kidney disease, stage 3 unspecified; R79.89 Other specified abnormal findings of blood chemistry; E87.1 Hypo-osmolality and hyponatremia; I25.10 Atherosclerotic heart disease of native coronary artery without angina pectoris; E03.9 Hypothyroidism, unspecified; I10 Essential (primary) hypertension; I48.0 Paroxysmal atrial fibrillation; I50.32 Chronic diastolic (congestive) heart failure; N18.9 Chronic kidney disease, unspecified; R11.0 Nausea; E53.8 Deficiency of other specified B group vitamins; N40.0 Benign prostatic hyperplasia without lower urinary tract symptoms; R60.9 Edema, unspecified; Z88.8 Allergy status to other drugs, medicaments and biological substances; Z87.891 Personal history of nicotine dependence; Z95.1 Presence of aortocoronary bypass graft; Z23 Encounter for immunization
CPT/HCPCS: 96361; 85025 ×2; 81001; 80048 ×2; 36415; 83735 ×2; 84100; 84132; 85610; 80076; 84443; 84484 ×3; 84439; 83690; 83880; 76377; 74176; 71045; 90471; 51702; 96372; 96374; 99285; Q2035; J3475; J7613; J7644; J1650; J7030; 93005; G0378